=== PATIENT | male | born 1945 | race Caucasian/White ===

== ENCOUNTER 2021-10-27 11:09 | Day surgery (SDC) | payer OTHER ==
[2021-10-26 13:57] LABS: SARS-CoV-2 Antigen Rapid Res Negative (Negative)
--- NOTE | 2021-10-27 07:21 | EKG ---
Test Date: 2021-10-26 Test Time: 13:25:44 [employer]: ERIC MEASUREMENT RESULTS: Intervals: Rate: 78 NJ: 202 QRSD: 102 QT: 370 QTc: 421 Mission: P: 58 NJ: 202 QRS: 16 T: 27 INTERPRETIVE STATEMENTS: Normal sinus rhythm Normal ECG No previous ECG available for comparison Electronically Signed On 10-27-21 07:18:40 CDT by Jose Rogel
[2021-10-27] MEDS ORDERED: CEFAZOLIN 2 GM IN 0.9% NACL 2 GM/100 ML BAG ONE (11:32)
[2021-10-27] MEDS ORDERED: NA CHLORIDE 0.9% 1,000 ML ONE (11:32)
[2021-10-27] MEDS ORDERED: LIDOCAINE 2% MPF 5 ML VIAL ONE (13:40)
[2021-10-27] MEDS ORDERED: propofoL 200 MG/20 ML VIAL IV ONE ×2 (13:40)
[2021-10-27] MEDS ORDERED: BUPIVACAINE 0.25% PF 30 ML VIAL ONE (14:09)
[2021-10-27] MEDS ORDERED: BUPIVACAINE 0.25% PF 10 ML VIAL IJ ONE ×2 (14:22)
[2021-10-27] MEDS ORDERED: SODIUM HYPOCHLORITE 0.25% 473 ML ONE (14:36)
--- NOTE | 2021-10-27 14:37 | P.OP ---
Preoperative diagnosis: Posterior Neck infected sebaceous cyst Postoperative diagnosis: Posterior Neck infected sebaceous cyst Primary procedure: Wide excision of Posterior Neck infected sebaceous cyst Anesthesia: GETA + Local Estimated blood loss: < 5cc Specimen: Posterior Neck infected sebaceous cyst Findings: ~6cm x 3 cm Posterior Neck infected sebaceous cyst Complications: None Transferred to: Recovery Room Condition: Good
[2021-10-27 16:17] VITALS: BP 142/51; TEMP 97.5; O2SAT 99
--- NOTE | 2021-10-27 21:40 | OP ---
Date of Procedure: 10/27/2021 Surgeon: Ammon Quinones MD, Preoperative Diagnosis: Posterior neck infected sebaceous cyst. Postoperative Diagnosis: Posterior neck infected sebaceous cyst. Procedure Performed: Wide local excision of posterior neck infected sebaceous cyst. Anesthesia: MAC plus local. Estimated Blood Loss: 5 cc. Specimens: Posterior neck infected sebaceous cyst. Findings: Approximately 6 cm x 3 cm posterior neck infected sebaceous cyst. Complications: None. Disposition: Patient was transferred to recovery room in good condition. Procedure In Detail: After informed was obtained, patient was brought to the operating room, prepped and draped in sterile fashion. After adequate anesthesia was achieved, an area of the posterior nec k and the area between the shoulder blades was anesthetized with 0.25% Marcaine, sharply incised. Th is abscess material had been draining from this site from the central portion. It appeared consisten t with infected sebaceous cyst. I circumferentially dissected down approximately 6 mm x 3 cm ellipse of skin including the infected areas down to circumferentially remove a sebaceous cyst with sebaceou s material. I circumferentially removed all the infected tissues and removed the entire sac along wi th the space material and sent it off for pathologic examination. Hemostasis was achieved with Bovie electrocautery. The area was copiously irrigated and then cleansed and suctioned out to completely dry. No additional hemostatic maneuvers required at the end of the procedure. Wound was then packed with sterile Kerlix soaked in 0.25% Dakin solution and a sterile dressing was placed over top. Quiana ent tolerated the procedure without evidence of complication and transferred to PACU in good conditio n. All counts were correct at the end of the case. SAMANTHA/ESTELLEL Voice ID: [id number] Report ID: [id number]
== END 2021-10-27 16:05 | disposition home or self-care (01) ==
LOC: OR 11:09
PROVIDERS: ATTEND Surgery
PROC: 0JB50ZZ Excision of Left Neck Subcutaneous Tissue and Fascia, Open Approach (ICD-10-PCS; principal; 2021-10-27 13:45)
DX: L72.0 Epidermal cyst (principal); Z20.822 Contact with and (suspected) exposure to COVID-19; I10 Essential (primary) hypertension; E11.9 Type 2 diabetes mellitus without complications
CPT/HCPCS: 93005; 87070; 36415; 87205; 82947 ×2; 88304; 87075; 87077; 87186; 87811; 11426; J2704 ×2; J0690; J7030; J2001

== ENCOUNTER 2021-10-27 20:41 | Emergency (ER) | payer OTHER ==
--- OUTSIDE RECORDS SUMMARY | 2021-10-27 21:20 | XMS REPORT | Continuity of Care Document ---
:1945 Author Organization [facility] t Address [address] [place] [address] Care Team Providers Name Role Phone Rashi Howell MD Primary Care Physician ELIS MCKEON Attending Clinician Unavailable Rashi Howell MD Attending Clinician Shadia Chavarria MDHJez Attending Clinician Doctor Unassigned, [place] Attending Clinician Unavailable MOHAN KAUFFMAN Attending Clinician Unavailable SHADIA CHAVARRIAHJez Attending Clinician Unavailable SALOME ZUNIGA Attending Clinician Unavailable Salome Miller Attending Clinician Unknown, Attending Attending Clinician Unavailable RASHI HOWELL Attending Clinician Unavailable Wilber Gross Attending Clinician Rome Ellsworth Attending Clinician Sergio Shields II Attending Clinician Maylin Ramirez Attending Clinician Maylin Ramirez Attending Clinician ELIS MCKEON Admitting Clinician Unavailable Payers Payer Name Policy Type Policy Number Effective Date Expiration Date S ource [employer] CHOICE [id number] 2021 00:00:00 Problems Condition Condition Condition Status Onset Resolution Last Treating Co mments Source Name Details Category Date Date Treatment Clinician Date Other Other Disease Active Univers elevated elevated 11-10 ity of white white 00:00: [place] blood cell blood cell 00 Me dical (WBC) (WBC) Branch count count Stress due Stress due Disease Active U nivers to illness to illness 11-10 it y of of family of [place] 00 [place] Medicare Medicare Disease Active Unive rs annual annual 9-11 ity of wellness wellness 00:00: [place] visit, visit, 00 Medical subsequent subsequent Br anch Rheumatic Rheumatic Disease Active Uni vers heart heart 11-01 ity of disease disease 00:00: [place] 00 Medical Branch Rheumatic Rheumatic Disease Active Uni vers mitral mitral 11-01 ity of valve valve 00:00: [place] leaflet leaflet 00 Medical changes changes Branch BOATENG BOATENG Disease Active Univers (nonalcoho (nonalcoho 11-01 it y of lic lic 00:00: [place] steatohepa steatohepa 00 Me dical titis) titis) Branch Need for Need for Disease Active Unive rs hepatitis hepatitis 11-01 ity of C C 00:00: [place] screening screening 00 Medi joann test test Branch Essential Essential Disease Active 2009-02 Uni vers hypertensi hypertensi 0-08 it y of on, benign [place], benign [place] Controlled Controlled Disease Active Overview : Univers type 2 type 2 07-23 Formattin ity of diabetes diabetes 00:00: g of this [place] as mellitus mellitus 00 note Medica l without without might be Branch complicati complicati different on, on, from the without without original. long-term long-term ICD10 current current Diagnosis use of use of Term insulin insulin [employer] FATTY FATTY Disease Active Univers LIVER LIVER 07-23 ity of 00:00: [place] 00 Medical Branch Dyslipidem Dyslipidem Disease Active Overview : Univers ia ia 07-23 Formattin ity of 00:00: g of this [place] 00 note Medical might be Branch different from the original. ICD10 Diagnosis Term [employer] Presence Presence Disease Active Overview: Un [place] of stent of stent 07-23 Formattin ity of in in 00:00: g of this [place] coronary coronary 00 note Medica l artery in artery in might be Br anch patient patient different with with from the coronary coronary original. artery artery ICD10 disease disease Diagnosis Term [employer] Nicotine Nicotine Disease Active Unive rs dependence dependence 07-23 it y of with with 00:00: [place] current current 00 Medical use use Branch Coronary Coronary Problem Active 2020-11-05 Memoria arterioscl arterioscl 02:02:40 l erosis erosis [place] (disorder) (disorder) Active Problem [facility]05/2020 [facility] Heart Heart Problem Active 2020-11-05 Memor ia disease disease 02:02:40 l (disorder) (disorder) He rmann Active Problem 11/05/2020 [facility] Heavy Heavy Problem Active 2020-11-05 Memor ia cigarette cigarette 02:02:40 l smoker smoker [place] (finding) (finding) Active Problem 11/05/2020 Medical [facility] Hypertensi Hypertens Problem Active 2020-11-05 Memoria ve nahomi 02:02:40 l disorder, disorder, Herm dereje systemic systemic arterial arterial (disorder) (disorder) [facility] Hypertens Problem Active 2020-11-05 Memoria ve heart nahomi heart 02:02:40 l disease disease [place] (disorder) (disorder) Active Problem 11/05/2020 Medical [facility] Mixed Mixed Problem Active 2020-11-05 Memor ia hyperlipid hyperlipid 02:02:40 l emia emia [place] (disorder) (disorder) Active Problem 11/05/2020 Medical [facility] Simple Simple Problem Active 2020-11-05 Mem oria obesity obesity 02:02:40 l (disorder) (disorder) He rmdereje Active Problem 11/05/2020 [facility] Diabetes Diabetes Problem Active 2020-11-05 Memoria mellitus mellitus 02:02:40 l type 2 type 2 [place] (disorder) (disorder) Active Problem 11/05/2020 [facility] Tinea Tinea Problem Active 2020-11-05 Memor ia cruris cruris 02:02:40 l (disorder) (disorder) He rmann Active Problem 11/05/2020 Medical Group, OPID Moshe Metabolic Metabolic Problem Active 2020-11-05 Memoria disease disease 02:02:40 l (disorder) (disorder) He rmann Active Problem 11/05/2020 Medical Group Diabetes Diabetes Problem Active 2019-09-11 Memoria mellitus mellitus 00:46:57 l (disorder) (disorder) He rmann Active Problem 09/11/2019 [facility] Group Allergies, Adverse Reactions, Alerts Allergy Allergy Status Severity Reaction(s) Onset Inactive Treating Comm ents Source Name Type Date Date Clinician NO KNOWN Drug Active Univers ALLERGIE Class ity of S [facility] Social History Social Habit Start Date Stop Date Quantity Comments Source History [facility] University o f Alcohol Std Drinks [facility] History [facility] o f Alcohol Binge [facility] Exposure to Not sure [facility] SARS-CoV-2 (event) [facility] History of tobacco Cigarette Smoker University of use [facility] Alcohol intake 2021-01-24 2021-01-24 Current University of 00:00:00 00:00:00 non-drinker of [facility] alcohol (finding) Branch Cigarettes smoked 2020-11-21 2020-11-21 [facility] ity of current (pack per 00:00:00 00:00:00 [facility] ) - Reported Branch Cigarette 2020-11-21 2020-11-21 University of pack-years 00:00:00 00:00:00 [facility] Tobacco use and 2020-11-21 2020-11-21 Smokeless tobacco Un iversity of exposure 00:00:00 00:00:00 non-user [facility] Social History 2019-09-16 2019-09-16 [facility] Jack mario 18:58:21 18:58:21 Alcohol Comment 2005-07-23 2005-07-23 RECOVERING Universit y of 00:00:00 00:00:00 ALCOHOLIC [facility] Sex [birth year] Universit y of 00:00:00 00:00:00 [facility] Smoking Status Start Date Stop Date Source Smokes tobacco daily 2020-11-21 00:00:00 Univers ity of [place] Medical [facility] Medications Ordered Filled Start Stop Current Ordering Indication Dosage Frequency Signature Comments Components Source Medication Medication Date Date Medication? Clinician (SIG) Name Name GIACOMO Yes [id number] Take 1 Univers N 20 mg 8-29 tablet by ity of tablet 00:00: mouth once [place] daily Medical Branch LISINOPRIL Yes [id number] Take 1 Un [facility] 20 mg 3-25 tablet by ity of tablet 00:00: mouth once [place] daily Medical Branch LISINOPRIL Yes [id number] Take 1 Un [place] 20 mg 3-25 tablet by ity of tablet 00:00: mouth once [place] daily Medical Branch LISINOPRIL Yes [id number] Take 1 Un [place] 20 mg 3-25 tablet by ity of tablet 00:00: mouth once [place] daily Medical Branch LISINOPRIL Yes [id number] Take 1 Un [place] 20 mg 3-25 tablet by ity of tablet 00:00: mouth once [place] daily Medical Branch LISINOPRIL Yes [id number] Take 1 Un [place] 20 mg 3-25 tablet by ity of tablet 00:00: mouth once [place] daily Medical Branch doxycycline 2020-02 Yes [id number] 100mg Take 1 Univers hyclate 100 1-24 tablet by ity of mg tablet 00:00: mouth 2 [place] (two) Medical times Ozone daily. albuterol 2020-02 Yes [id number] 2.5mg Inhale 0.5 Univers 2.5 mg/0.5 1-24 mL every 6 ity of mL 00:00: (six) [place] nebulizer 00 hours as Medica l solution needed for Branc h Wheezing or Shortness of Breath. benzonatate 2020-02 Yes [id number] 100mg Take 1 Univers (TESSALON 1-24 capsule by ity of PERLES) 100 00:00: mouth [place] mg capsule 00 every 8 Medica l (eight) Branch hours as needed for Cough. doxycycline 2020-02 Yes [id number] 100mg Take 1 Univers hyclate 100 1-24 tablet by ity of mg tablet 00:00: mouth 2 [place] 00 (two) Medical times Branch daily. albuterol 2020-02 Yes [id number] 2.5mg Inhale 0.5 Univers 2.5 mg/0.5 1-24 mL every 6 ity of mL 00:00: (six) [place] nebulizer 00 hours as Medica l solution needed for Branc h Wheezing or Shortness of Breath. benzonatate 2020-02 Yes [id number] 100mg Take 1 Univers (TESSALON 1-24 capsule by ity of PERLES) 100 00:00: mouth [place] mg capsule 00 every 8 Medica l (eight) Branch hours as needed for Cough. doxycycline 2020-02 Yes [id number] 100mg Take 1 Univers hyclate 100 1-24 tablet by ity of mg tablet 00:00: mouth 2 [place] 00 (two) Medical times Branch daily. albuterol 2020-02 Yes [id number] 2.5mg Inhale 0.5 Univers 2.5 mg/0.5 1-24 mL every 6 ity of mL 00:00: (six) [place] nebulizer 00 hours as Medica l solution needed for Branc h Wheezing or Shortness of Breath. benzonatate 2020-02 Yes [id number] 100mg Take 1 Univers (TESSALON 1-24 capsule by ity of PERLOmgili) 100 00:00: mouth [place] mg capsule 00 every 8 Medica l (eight) Branch hours as needed for Cough. doxycycline 2020-02 Yes [id number] 100mg Take 1 Univers hyclate 100 1-24 tablet by ity of mg tablet 00:00: mouth 2 (two) Medical times Branch daily. albuterol 2020-02 Yes [id number] 2.5mg Inhale 0.5 Univers 2.5 mg/0.5 1-24 mL every 6 ity of mL 00:00: (six) [place] nebulizer 00 hours as Medica l solution needed for Branc h Wheezing or Shortness of Breath. benzonatate 2020-02 Yes [id number] 100mg Take 1 Univers (TESSALON 1-24 capsule by ity of PERLES) 100 00:00: mouth [place] mg capsule 00 every 8 Medica l (eight) Branch hours as needed for Cough. doxycycline 2020-02 Yes [id number] 100mg Take 1 Univers hyclate 100 1-24 tablet by ity of mg tablet 00:00: mouth 2 [place] 00 (two) Medical times Branch daily. albuterol 2020-02 Yes [id number] 2.5mg Inhale 0.5 Univers 2.5 mg/0.5 1-24 mL every 6 ity of mL 00:00: (six) [place] nebulizer 00 hours as Medica l solution needed for Branc h Wheezing or Shortness of Breath. benzonatate 2020-02 Yes [id number] 100mg Take 1 Univers (TESSALON 1-24 capsule by ity of PERLOmgili) 100 00:00: mouth [place] mg capsule 00 every 8 Medica l (eight) Branch hours as needed for Cough. doxycycline 2020-02 Yes [id number] 100mg Take 1 Univers hyclate 100 1-24 tablet by ity of mg tablet 00:00: mouth 2 [place] 00 (two) Medical times Branch daily. albuterol 2020-02 Yes [id number] 2.5mg Inhale 0.5 Univers 2.5 mg/0.5 1-24 mL every 6 ity of mL 00:00: (six) [place] nebulizer 00 hours as Medica l solution needed for Branc h Wheezing or Shortness of Breath. benzonatate 2020-02 Yes [id number] 100mg Take 1 Univers (TESSALON 1-24 capsule by ity of PERLOmgili) 100 00:00: mouth [place] mg capsule 00 every 8 Medica l (eight) Branch hours as needed for Cough. doxycycline 2020-02 Yes [id number] 100mg Take 1 Univers hyclate 100 1-24 tablet by ity of mg tablet 00:00: mouth 2 [place] 00 (two) Medical times Branch daily. albuterol 2020-02 Yes [id number] 2.5mg Inhale 0.5 Univers 2.5 mg/0.5 1-24 mL every 6 ity of mL 00:00: (six) [place] nebulizer 00 hours as Medica l solution needed for Branc h Wheezing or Shortness of Breath. benzonatate 2020-02 Yes [id number] 100mg Take 1 Univers (TESSALON 1-24 capsule by ity of PERLES) 100 00:00: mouth [place] mg capsule 00 every 8 Medica l (eight) Branch hours as needed for Cough. Lancets 2020-02 Yes [id number] E11.9: Use Univers (ACCU-CHEK 0-01 1 to check ity of FASTCLIX 00:00: glucose [place] LANCET 00 once daily Medical DRUM) Misc Branch Lancets 2020-02 Yes [id number] E11.9: Use Univers (ACCU-CHEK 0-01 1 to check ity of FASTCLIX 00:00: glucose [place] LANCET 00 once daily Medical DRUM) [facility] Lancets 2020-02 Yes [id number] E11.9: Use Univers (ACCU-CHEK 0-01 1 to check ity of FASTCLIX 00:00: glucose [place] LANCET 00 once daily Medical DRUM) [facility] Lancets 2020-02 Yes [id number] E11.9: Use Univers (ACCU-CHEK 0-01 1 to check ity of FASTCLIX 00:00: glucose [place] LANCET 00 once daily Medical DRUM) [facility] Lancets 2020-02 Yes [id number] E11.9: Use Univers (ACCU-CHEK 0-01 1 to check ity of FASTCLIX 00:00: glucose [place] LANCET 00 once daily Medical DRUM) [facility] Lancets 2020-02 Yes [id number] E11.9: Use Univers (ACCU-CHEK 0-01 1 to check ity of FASTCLIX 00:00: glucose [place] LANCET 00 once daily Medical DRUM) [facility] Lancets 2020-02 Yes [id number] E11.9: Use Univers (ACCU-CHEK 0-01 1 to check ity of FASTCLIX 00:00: glucose [place] LANCET 00 once daily Medical DRUM) [facility] nicotine Yes [id number] 1{patch Apply 1 Univers mg/24 hr 9-16 } Patch to ity of patch 00:00: area(s) [place] 00 daily. Medical Apply 21mg Branch patch daily x 6 weeks; then apply 14mf patch daily x 2 weeks; then apply 7mg patch daily x 2 weeks. Stop smoking on initiation of therapy nicotine Yes [id number] 1{patch Apply 1 Univers mg/24 hr 9-16 } Patch to ity of patch 00:00: area(s) [place] 00 every 24 Medical (twenty-fo Branch ur) hours. Apply 21mg patch daily x 6 weeks; then apply 14mf patch daily x 2 weeks; then apply 7mg patch daily x 2 weeks. Stop smoking on initiation of therapy nicotine 7 Yes [id number] 1{patch Apply 1 Univers mg/24 hr 9-16 } Patch to ity of patch 00:00: area(s) [place] 00 every 24 Medical (twenty- Branch ur) hours. Apply 21mg patch daily x 6 weeks; then apply 14mf patch daily x 2 weeks; then apply 7mg patch daily x 2 weeks. Stop smoking on initiation of therapy glimepiride Yes [id number] 4mg Take 1 Univers 4 mg tablet 9-16 tablet by ity of 00:00: mouth [place] 00 daily with Medical breakfast. Branch nicotine Yes [id number] 1{patch Apply 1 Univers mg/24 hr 9-16 } Patch to ity of patch 00:00: area(s) [place] 00 daily. Medical Apply 21mg Branch patch daily x 6 weeks; then apply 14mf patch daily x 2 weeks; then apply 7mg patch daily x 2 weeks. Stop smoking on initiation of therapy nicotine Yes [id number] 1{patch Apply 1 Univers mg/24 hr 9-16 } Patch to ity of patch 00:00: area(s) [place] 00 every 24 Medical (twenty- Branch ur) hours. Apply 21mg patch daily x 6 weeks; then apply 14mf patch daily x 2 weeks; then apply 7mg patch daily x 2 weeks. Stop smoking on initiation of therapy nicotine 7 Yes [id number] 1{patch Apply 1 Univers mg/24 hr 9-16 } Patch to ity of patch 00:00: area(s) [place] 00 every 24 Medical (twenty- Branch ur) hours. Apply 21mg patch daily x 6 weeks; then apply 14mf patch daily x 2 weeks; then apply 7mg patch daily x 2 weeks. Stop smoking on initiation of therapy glimepiride Yes [id number] 4mg Take 1 Univers 4 mg tablet 9-16 tablet by ity of 00:00: mouth [place] 00 daily with Medical breakfast. Branch nicotine Yes [id number] 1{patch Apply 1 Univers mg/24 hr 9-16 } Patch to ity of patch 00:00: area(s) [place] 00 daily. Medical Apply 21mg Branch patch daily x 6 weeks; then apply 14mf patch daily x 2 weeks; then apply 7mg patch daily x 2 weeks. Stop smoking on initiation of therapy nicotine Yes [id number] 1{patch Apply 1 Univers mg/24 hr 9-16 } Patch to ity of patch 00:00: area(s) [place] 00 every 24 Medical (twenty- Branch ur) hours. Apply 21mg patch daily x 6 weeks; then apply 14mf patch daily x 2 weeks; then apply 7mg patch daily x 2 weeks. Stop smoking on initiation of therapy nicotine Yes [id number] 1{patch Apply 1 Univers mg/24 hr 9-16 } Patch to ity of patch 00:00: area(s) [place] 00 every 24 Medical (twenty- Branch ur) hours. Apply 21mg patch daily x 6 weeks; then apply 14mf patch daily x 2 weeks; then apply 7mg patch daily x 2 weeks. Stop smoking on initiation of therapy glimepiride Yes [id number] 4mg Take 1 Univers 4 mg tablet 9-16 tablet by ity of 00:00: [facility] [place] 00 daily with Medical breakfast. Branch nicotine Yes [id number] 1{patch Apply 1 Univers mg/24 hr 9-16 } Patch to ity of patch 00:00: area(s) [place] 00 daily. Medical Apply 21mg Branch patch daily x 6 weeks; then apply 14mf patch daily x 2 weeks; then apply 7mg patch daily x 2 weeks. Stop smoking on initiation of therapy nicotine Yes [id number] 1{patch Apply 1 Univers mg/24 hr 9-16 } Patch to ity of patch 00:00: area(s) [place] 00 every 24 Medical ([facility] Branch ur) hours. Apply 21mg patch daily x 6 weeks; then apply 14mf patch daily x 2 weeks; then apply 7mg patch daily x 2 weeks. Stop smoking on initiation of therapy nicotine Yes [id number] 1{patch Apply 1 Univers mg/24 hr 9-16 } Patch to ity of patch 00:00: area(s) [place] 00 every 24 Medical (twenty- Branch ur) hours. Apply 21mg patch daily x 6 weeks; then apply 14mf patch daily x 2 weeks; then apply 7mg patch daily x 2 weeks. Stop smoking on initiation of therapy glimepiride Yes [id number] 4mg Take 1 Univers 4 mg tablet 9-16 tablet by ity of 00:00: mouth [place] 00 daily with Medical breakfast. Branch nicotine Yes [id number] 1{patch Apply 1 Univers mg/24 hr 9-16 } Patch to ity of patch 00:00: area(s) [place] 00 daily. Medical Apply 21mg Branch patch daily x 6 weeks; then apply 14mf patch daily x 2 weeks; then apply 7mg patch daily x 2 weeks. Stop smoking on initiation of therapy nicotine 14 Yes [id number] 1{patch Apply 1 Univers mg/24 hr 9-16 } Patch to ity of patch 00:00: area(s) [place] 00 every 24 Medical (twenty-fo Branch ur) hours. Apply 21mg patch daily x 6 weeks; then apply 14mf patch daily x 2 weeks; then apply 7mg patch daily x 2 weeks. Stop smoking on initiation of therapy nicotine 7 Yes [id number] 1{patch Apply 1 Univers mg/24 hr 9-16 } Patch to ity of patch 00:00: area(s) [place] 00 every 24 Medical (twenty-fo Branch ur) hours. Apply 21mg patch daily x 6 weeks; then apply 14mf patch daily x 2 weeks; then apply 7mg patch daily x 2 weeks. Stop smoking on initiation of therapy glimepiride Yes [id number] 4mg Take 1 Univers 4 mg tablet 9-16 tablet by ity of 00:00: mouth [place] 00 daily with Medical breakfast. Branch nicotine Yes [id number] 1{patch Apply 1 Univers mg/24 hr 9-16 } Patch to ity of patch 00:00: area(s) [place] 00 daily. Medical Apply 21mg Branch patch daily x 6 weeks; then apply 14mf patch daily x 2 weeks; then apply 7mg patch daily x 2 weeks. Stop smoking on initiation of therapy nicotine 14 Yes [id number] 1{patch Apply 1 Univers mg/24 hr 9-16 } Patch to ity of patch 00:00: area(s) [place] 00 every 24 Medical (twenty-fo Branch ur) hours. Apply 21mg patch daily x 6 weeks; then apply 14mf patch daily x 2 weeks; then apply 7mg patch daily x 2 weeks. Stop smoking on initiation of therapy nicotine 7 2021-0 Yes [id number] 1{patch Apply 1 Univers mg/24 hr 9-16 } Patch to ity of patch 00:00: area(s) [place] 00 every 24 Medical (twenty-fo Branch ur) hours. Apply 21mg patch daily x 6 weeks; then apply 14mf patch daily x 2 weeks; then apply 7mg patch daily x 2 weeks. Stop smoking on initiation of therapy glimepiride Yes [id number] 4mg Take 1 Univers 4 mg tablet 9-16 tablet by ity of 00:00: mouth [place] 00 daily with Medical breakfast. Branch nicotine Yes [id number] 1{patch Apply 1 Univers mg/24 hr 9-16 } Patch to ity of patch 00:00: area(s) [place] 00 daily. Medical Apply 21mg Branch patch daily x 6 weeks; then apply 14mf patch daily x 2 weeks; then apply 7mg patch daily x 2 weeks. Stop smoking on initiation of therapy nicotine Yes [id number] 1{patch Apply 1 Univers mg/24 hr 9-16 } Patch to ity of patch 00:00: area(s) [place] 00 every 24 Medical (twenty-fo Branch ur) hours. Apply 21mg patch daily x 6 weeks; then apply 14mf patch daily x 2 weeks; then apply 7mg patch daily x 2 weeks. Stop smoking on initiation of therapy nicotine Yes [id number] 1{patch Apply 1 Univers mg/24 hr 9-16 } Patch to ity of patch 00:00: area(s) [place] 00 every 24 Medical (twenty-fo Branch ur) hours. Apply 21mg patch daily x 6 weeks; then apply 14mf patch daily x 2 weeks; then apply 7mg patch daily x 2 weeks. Stop smoking on initiation of therapy glimepiride Yes [id number] 4mg Take 1 Univers 4 mg tablet 9-16 tablet by ity of 00:00: mouth [place] 00 daily with Medical breakfast. Branch dulaglutide Yes 1.5mg inject 1.5 Univers (TRULICITY) 9-07 mg under ity of 1.5 mg/0.5 10:10: the skin Day[place] as mL PnIj 08 every 7 Medical (seven) Branch days. dulaglutide 2021-0 Yes 1.5mg inject 1.5 Univers (TRULICITY) 9-07 mg under ity of 1.5 mg/0.5 10:10: the skin [place] as mL PnIj 08 every 7 Medical (seven) Branch days. dulaglutide 2021-0 Yes 1.5mg inject 1.5 Univers (TRULICITY) 9-07 mg under ity of 1.5 mg/0.5 10:10: the skin [place] as mL PnIj 08 every 7 Medical (seven) Branch days. dulaglutide 2021-0 Yes 1.5mg inject 1.5 Univers (TRULICITY) 9-07 mg under ity of 1.5 mg/0.5 10:10: the skin [place] as mL PnIj 08 every 7 Medical (seven) Branch days. dulaglutide 2021-0 Yes 1.5mg inject 1.5 Univers (TRULICITY) 9-07 mg under ity of 1.5 mg/0.5 10:10: the skin [place] as mL PnIj 08 every 7 Medical (seven) Branch days. dulaglutide 2021-0 Yes 1.5mg inject 1.5 Univers (TRULICITY) 9-07 mg under ity of 1.5 mg/0.5 10:10: the skin [place] as mL PnIj 08 every 7 Medical (seven) Branch days. dulaglutide 2021-0 Yes 1.5mg inject 1.5 Univers (TRULICITY) 9-07 mg under ity of 1.5 mg/0.5 10:10: the skin [place] as mL PnIj 08 every 7 Medical (seven) Branch days. aspirin 81 2020-0 Yes 1{tbl} Take 1 Uni vers mg EC 9-07 tablet by ity of tablet 10:08: mouth [place] 57 daily. Medical Branch acetaminoph 202-0 Yes 1{tbl} Take 1 Un [place] en 325 mg 9-07 tablet by ity o f tablet 10:08: mouth [place] 57 daily. Medical Branch aspirin 81 2021-0 Yes 1{tbl} Take 1 Uni vers mg EC 9-07 tablet by ity of tablet 10:08: mouth [place] 57 daily. Medical Branch acetaminoph 202-0 Yes 1{tbl} Take 1 Un [place] en 325 mg 9-07 tablet by ity o f tablet 10:08: mouth [place] 57 daily. Medical Branch aspirin 81 Yes 1{tbl} Take 1 Uni vers mg EC 9-07 tablet by ity of tablet 10:08: mouth [place] 57 daily. Medical Branch acetaminoph Yes 1{tbl} Take 1 Un [place] en 325 mg 9-07 tablet by ity o f tablet 10:08: mouth [place] 57 daily. Medical Branch aspirin 81 Yes 1{tbl} Take 1 Uni vers mg EC 9-07 tablet by ity of tablet 10:08: mouth [place] 57 daily. Medical Branch acetaminoph Yes 1{tbl} Take 1 Un [place] en 325 mg 9-07 tablet by ity o f tablet 10:08: mouth [place] 57 daily. Medical Branch aspirin 81 Yes 1{tbl} Take 1 Uni vers mg EC 9-07 tablet by ity of tablet 10:08: mouth [place] 57 daily. Medical Branch acetaminoph Yes 1{tbl} Take 1 Un [place] en 325 mg 9-07 tablet by ity o f tablet 10:08: mouth [place] 57 daily. Medical Branch aspirin 81 Yes 1{tbl} Take 1 Uni vers mg EC 9-07 tablet by ity of tablet 10:08: mouth [place] 57 daily. Medical Branch acetaminoph Yes 1{tbl} Take 1 Un [place] en 325 mg 9-07 tablet by ity o f tablet 10:08: mouth [place] 57 daily. Medical Branch aspirin 81 Yes 1{tbl} Take 1 Uni vers mg EC 9-07 tablet by ity of tablet 10:08: mouth [place] 57 daily. Medical Branch acetaminoph Yes 1{tbl} Take 1 [facility] [place] en 325 mg 9-07 tablet by ity o f tablet 10:08: mouth [place] 57 daily. Medical Branch metoprolol Yes [id number] 25mg Take 1 Univers tartrate 25 9-07 tablet by ity of mg tablet 00:00: mouth [place] 00 daily. Medical Branch lisinopriL Yes [id number] 20mg Take 1 [facility] [place] 20 mg 9-07 tablet by ity of tablet 00:00: mouth [place] 00 daily. Medical Branch metFORMIN Yes [id number] TAKE ONE Univers 1,000 mg 9-07 TABLET BY ity of tablet 00:00: MOUTH [place] 00 TWICE Medical DAILY WITH Branch MEALS rosuvastati Yes [id number] 20mg Take 1 Univers n 20 mg 9-07 tablet by ity of tablet 00:00: mouth [place] 00 daily. Medical Branch nitroglycer 0 Yes [id number] as U nivers in 0.4 mg 9-07 directed ity of sublingual 00:00: [place] tablet 00 Medical Branch metoprolol 0 Yes [id number] 25mg Take 1 Univers tartrate 25 9-07 tablet by ity of mg tablet 00:00: mouth [place] 00 daily. Medical Branch lisinopriL Yes [id number] 20mg Take 1 Un sien[place] 20 mg 9-07 tablet by ity of tablet 00:00: mouth [place] 00 daily. Medical Branch metFORMIN 0 Yes [id number] TAKE ONE Univers 1,000 mg 9-07 TABLET BY ity of tablet 00:00: MOUTH [place] 00 TWICE Medical DAILY WITH Branch MEALS rosuvastati Yes [id number] 20mg Take 1 Univers n 20 mg 9-07 tablet by ity of tablet 00:00: mouth [place] 00 daily. Medical Branch nitroglycer Yes [id number] as U nivers in 0.4 mg 9-07 directed ity of sublingual 00:00: [place] tablet 00 Medical Branch metoprolol 0 Yes [id number] 25mg Take 1 Univers tartrate 25 9-07 tablet by ity of mg tablet 00:00: mouth [place] 00 daily. Medical Branch metFORMIN 2020-0 Yes [id number] TAKE ONE Univers 1,000 mg 9-07 TABLET BY ity of tablet 00:00: MOUTH [place] 00 TWICE Medical DAILY WITH Branch MEALS rosuvastati Yes [id number] 20mg Take 1 Univers n 20 mg 9-07 tablet by ity of tablet 00:00: mouth [place] 00 daily. Medical Branch nitroglycer 0 Yes [id number] as U nivers in 0.4 mg 9-07 directed ity of sublingual 00:00: [place] tablet 00 Medical Branch metoprolol 2020-0 Yes [id number] 25mg Take 1 Univers tartrate 25 9-07 tablet by ity of mg tablet 00:00: mouth [place] 00 daily. Medical Branch metFORMIN 2021-0 Yes [id number] TAKE ONE Univers 1,000 mg 9-07 TABLET BY ity of tablet 00:00: MOUTH [place] 00 TWICE Medical DAILY WITH Branch MEALS rosuvastati 0 Yes [id number] 20mg Take 1 Univers n 20 mg 9-07 tablet by ity of tablet 00:00: mouth [place] 00 daily. Medical Branch nitroglycer 2020-0 Yes [id number] as U nivers in 0.4 mg 9-07 directed ity of sublingual 00:00: [place] tablet 00 Medical Branch metoprolol 2020-0 Yes [id number] 25mg Take 1 Univers tartrate 25 9-07 tablet by ity of mg tablet 00:00: mouth [place] 00 daily. Medical Branch metFORMIN 2020-0 Yes [id number] TAKE ONE Univers 1,000 mg 9-07 TABLET BY ity of tablet 00:00: MOUTH [place] 00 TWICE Medical DAILY WITH Branch MEALS rosuvastati 0 Yes [id number] 20mg Take 1 Univers n 20 mg 9-07 tablet by ity of tablet 00:00: mouth [place] 00 daily. Medical Branch nitroglycer 0 Yes [id number] as U nivers in 0.4 mg 9-07 directed ity of sublingual 00:00: [place] tablet 00 Medical Branch metoprolol 2020-0 Yes [id number] 25mg Take 1 Univers tartrate 25 9-07 tablet by ity of mg tablet 00:00: mouth [place] 00 daily. Medical Branch metFORMIN 2020-0 Yes [id number] TAKE ONE Univers 1,000 mg 9-07 TABLET BY ity of tablet 00:00: MOUTH [place] 00 TWICE Medical DAILY WITH Branch MEALS rosuvastati 0 Yes [id number] 20mg Take 1 Univers n 20 mg 9-07 tablet by ity of tablet 00:00: mouth [place] 00 daily. Medical Branch nitroglycer 0 Yes [id number] as U nivers in 0.4 mg 9-07 directed ity of sublingual 00:00: [place] tablet 00 Medical Branch metoprolol 2020-0 Yes [id number] 25mg Take 1 Univers tartrate 25 9-07 tablet by ity of mg tablet 00:00: mouth [place] 00 daily. Medical Branch metFORMIN 2020-0 Yes [id number] TAKE ONE Univers 1,000 mg 9-07 TABLET BY ity of tablet 00:00: MOUTH [place] 00 TWICE Medical DAILY WITH Branch MEALS nitroglycer Yes [id number] as U nivers in 0.4 mg 11-01 directed ity of sublingual 00:00: [place] tablet 00 Medical Branch rosuvastati 2021- No [id number] 20mg Take 1 Univers n 20 mg 11-01 tablet by ity of tablet 00:00: 00:00 mouth [place] 00 :00 daily. Medical Branch lisinopriL 2021- No [id number] 20mg Take 1 U nivers 20 mg 11-01 tablet by ity of tablet 00:00: 00:00 mouth [place] 00 :00 daily. Medical Branch Accu-Chek Yes , # 1 ea, Mem oria Guide Blood 8-10 Not l Glucose 15:56: insulin [place] Meter 00 dependent, Does not use insulin pump, Last DM eval date 09/30/20, 0 Refill(s), Pharmacy: [facility]iver... ACCU-CHEK Yes Univers GUIDE 8-10 ity of GLUCOSE 00:00: [place] METER Misc 00 Medical Branch ACCU-CHEK 0 Yes Univers GUIDE 8-10 ity of GLUCOSE 00:00: [place] METER Misc 00 Medical Branch ACCU-CHEK 0 Yes Univers GUIDE 8-10 ity of GLUCOSE 00:00: [place] METER Misc 00 Medical Branch ACCU-CHEK 2020-0 Yes Univers GUIDE 8-10 ity of GLUCOSE 00:00: [place] METER Misc 00 Medical Branch ACCU-CHEK 2020-0 Yes Univers GUIDE 8-10 ity of GLUCOSE 00:00: [place] METER Misc 00 Medical Branch ACCU-CHEK 2020-0 Yes Univers GUIDE 8-10 ity of GLUCOSE 00:00: [place] METER Misc 00 Medical Branch ACCU-CHEK 2020-0 Yes Univers GUIDE 8-10 ity of GLUCOSE 00:00: [place] METER Misc 00 Medical Branch Dexcom G6 2020-0 Yes , # 1 ea, 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 Dexcom G6 2021-0 Yes 1 Umm thayeroria Sensor Kit - MISC, l 21:53: ONCE, [place] 00 Change sensor every 2 weeks, # 6 ea, Not insulin dependent, Does not use insulin pump, Last DM eval date 09/30/20, 1 Refill(s), Pharmacy: [facility], 172.72, cm, 09/30/20 13:45:00 CDT, Height, 84.182, kg, 09/30/20 13:45:00.. . FreeStyle 2021-0 Yes , # 1 ea, Mem oria Bhupinder 8- Not l [place] 17:27: insulin [place] 00 dependent, Does not use insulin pump, Last DM eval date 09/30/20, 0 Refill(s), Pharmacy: [facility], 172.72... FreeStyle 2021-0 Yes , # 3 ea, Mem oria Bhupinder 8- Not l Sensor 17:27: insulin [place] 00 dependent, Does not use insulin pump, Last DM eval date 09/30/20, 3 Refill(s), Pharmacy: [facility], 172.72... ACCU-CHEK 2021-0 Yes USE TO Univer s GUIDE TEST 6-12 CHECK ity of STRIPS 00:00: BLOOD [place] strip 00 SUGAR Medical TWICE Branch DAILY ACCU-CHEK 2021-0 Yes USE TO Univer s GUIDE TEST 6-12 CHECK ity of STRIPS 00:00: BLOOD [place] strip 00 SUGAR Medical TWICE Branch DAILY ACCU-CHEK 2021-0 Yes USE TO Univer s GUIDE TEST 6-12 CHECK ity of STRIPS 00:00: BLOOD [place] strip 00 SUGAR Medical TWICE Branch DAILY ACCU-CHEK 2021-0 Yes USE TO Univer s GUIDE TEST 6-12 CHECK ity of STRIPS 00:00: BLOOD [place] strip 00 SUGAR Medical TWICE Branch DAILY ACCU-CHEK 2021-0 Yes USE TO Univer s GUIDE TEST 6-12 CHECK ity of STRIPS 00:00: BLOOD [place] strip 00 SUGAR Medical TWICE Branch DAILY ACCU-CHEK 2021-0 Yes USE TO Univer s GUIDE TEST 6-12 CHECK ity of STRIPS 00:00: BLOOD [place] strip 00 SUGAR Medical TWICE Branch DAILY ACCU-CHEK 2021-0 Yes USE TO Pylba s GUIDE TEST 6-12 CHECK ity of STRIPS 00:00: BLOOD [place] strip 00 SUGAR Medical TWICE Branch DAILY glimepiride Yes 4 mg = 1 Me moria 4 mg oral 4-22 tab, PO, l tablet 21:24: Breakfast, Kalie nn 00 # 90 tab, 1 Refill(s), Pharmacy: [facility], 172.72, cm, 03/30/20 14:22:00 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, Height, 95, kg, 03/30/20 14:22:00 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, Weight lisinopril Yes 5 mg = 1 Mem oria 5 mg oral 4-22 tab, PO, l tablet 21:24: Daily, # [place] 00 90 tab, 1 Refill(s), Pharmacy: [facility], 172.72, cm, 03/30/20 14:22:00 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, Height, 95, kg, 03/30/20 14:22:00 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, Weight lovastatin Yes 20 mg = 1 Me moria 20 mg oral 4-22 tab, PO, l tablet 21:24: Bedtime, # Kalie nn 00 90 tab, 1 Refill(s), Pharmacy: [facility], 172.72, cm, 03/30/20 14:22:00 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, Height, 95, kg, 03/30/20 14:22:00 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, Weight Metformin Yes 1,000 mg = Me moria hydrochlori 4-22 1 tab, PO, l de 1000 MG 21:24: BID-Meals, H ermann Oral Tablet 00 # 180 tab, 1 Refill(s), Pharmacy: [facility], 172.72, cm, 03/30/20 14:22:00 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, Height, 95, kg, 03/30/20 14:22:00 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, Weight Metoprolol Yes = 1 tab, Mem oria Succinate 4-22 PO, Daily, l ER 25 mg 21:24: # 90 tab, Herm dereje oral 00 1 tablet, Refill(s), extended Pharmacy: release [facility], 172.72, cm, 03/30/20 14:22:00 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, Height, 95, kg, 03/30/20 14:22:00 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, Weight Metoprolol Yes = 1 tab, Mem oria Succinate 3-31 PO, Daily, l ER 25 mg 19:35: # 90 tab, Herm dereje oral 00 1 tablet, Refill(s), extended Pharmacy: release [facility], 172.72, cm, 03/30/20 14:22:00 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, Height, 95, kg, 03/30/20 14:22:00 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, Weight glimepiride Yes 4 mg = 1 Me moria 4 mg oral 3-31 tab, PO, l tablet 19:35: Breakfast, Kalie nn 00 # 90 tab, 1 Refill(s), Pharmacy: [facility] Mail Delivery, 172.72, cm, 03/30/20 14:22:00 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, Height, 95, kg, 03/30/20 14:22:00 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, Weight lovastatin Yes 20 mg = 1 Me moria 20 mg oral 3-31 tab, PO, l tablet 19:35: Bedtime, # Kalie nn 00 90 tab, 1 Refill(s), Pharmacy: [facility] Mail Delivery, 172.72, cm, 03/30/20 14:22:00 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, Height, 95, kg, 03/30/20 14:22:00 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, Weight Lancets 2021-0 Yes 1 box, Memoria 3-31 MISC, l 19:35: Daily, for [place] 00 once daily glucose testing, # 100 ea, 3 Refill(s), Pharmacy: [facility], 172.72, cm, 03/30/20 14:22:00 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, Height, 95, kg, 03/30/20 14:22:00 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, Weight lisinopril 0 Yes 5 mg = 1 Mem oria 5 mg oral 3-31 tab, PO, l tablet 19:35: Daily, # [place] 00 90 tab, 1 Refill(s), Pharmacy: [facility], 172.72, cm, 03/30/20 14:22:00 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, Height, 95, kg, 03/30/20 14:22:00 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, Weight Metoprolol Yes = 1 tab, Mem oria Succinate 3-22 PO, Daily, l ER 25 mg 21:04: # 90 tab, Herm dereje oral 00 1 tablet, Refill(s), extended Pharmacy: [facility], 172.72, cm, 03/30/20 14:22:00 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, Height, 95, kg, 03/30/20 14:22:00 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, Weight Metformin 0 Yes 1,000 mg = Me moria hydrochlori 3-22 1 tab, PO, l de 1000 MG 21:04: BID-Meals, H ermann Oral Tablet 00 # 180 tab, 1 Refill(s), Pharmacy: [facility], 172.72, cm, 03/30/20 14:22:00 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, Height, 95, kg, 03/30/20 14:22:00 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, Weight lovastatin 0 Yes 20 mg = 1 Me moria 20 mg oral 3-22 tab, PO, l tablet 21:04: Bedtime, # Kalie nn 00 90 tab, 1 Refill(s), Pharmacy: [facility], 172.72, cm, 03/30/20 14:22:00 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, Height, 95, kg, 03/30/20 14:22:00 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, Weight lisinopril 0 Yes 5 mg = 1 Mem oria 5 mg oral 3-22 tab, PO, l tablet 21:04: Daily, # [place] 00 90 tab, 1 Refill(s), Pharmacy: [facility], 172.72, cm, 03/30/20 14:22:00 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, Height, 95, kg, 03/30/20 14:22:00 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, Weight glimepiride Yes 4 mg = 1 Me moria 4 mg oral 3-22 tab, PO, l tablet 21:04: Breakfast, Kalie nn 00 # 90 tab, 1 Refill(s), Pharmacy: [facility], 172.72, cm, 03/30/20 14:22:00 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, Height, 95, kg, 03/30/20 14:22:00 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, Weight Metoprolol 2019-02 Yes = 1 tab, Mem oria Succinate 2-24 PO, Daily, l ER 25 mg 17:44: # 90 tab, Herm dereje oral 00 3 tablet, Refill(s), extended Pharmacy: release [facility], 172.72, cm, 12/09/19 13:14:00 CDT, Height, 91.636, kg, 12/09/19 13:14:00 CDT, Weight Accu-Chek 2019- Yes Insulin Jarod mingo Guide Blood 1-23 Dep:N, # l Glucose 17:55: 200 ea, [place] Test Strips 00 Not insulin dependent, Does not use insulin pump, Last DM eval date 09/03/19, 3 Refill(s), Pharmacy: [facility], 172.72, cm, 12/09/19 13:14:00 CDT, Height, 91.636, kg, 10... glimepiride 2019-02 Yes 4 mg = 1 Me moria 4 mg oral 1-23 tab, PO, l tablet 17:54: Breakfast, Kalie nn 00 # 90 tab, 1 Refill(s), Pharmacy: [facility], 172.72, cm, 12/09/19 13:14:00 CDT, Height, 91.636, kg, 12/09/19 13:14:00 CDT, Weight Nystatin Yes 1 appl, Memori a [id number] 9-09 TOP, TID, l UNT/ML 20:18: PRN Rash, Tomas n Topical 00 # 30 gm, 3 Cream Refill(s), Pharmacy: [facility], 172.72, cm, 11/04/19 14:58:00 CDT, Height, 93.091, kg, 11/04/19 14:58:00 CDT, Weight FreeStyle 2020-0 Yes , # 1 ea, Mem oria Bhupinder - Insulin l [place] 19:28: dependent, Kalie nn 00 Does not use insulin pump, Last DM eval date 09/16/19, 0 Refill(s), Pharmacy: [facility], 172.72, cm... FreeStyle 2020-0 Yes See Memoria Bhupinder - Instructio l Sensor 19:28: ns, MISC, Tomas n 00 change every 14 days, # 6 ea, Insulin dependent, Does not use insulin pump, Last DM eval date 09/16/19, 3 Refill(s), Pharmacy: [facility], 172.72, cm, 09/03/19 10:34:00 CDT, Height, 93.636, kg, 09/16/19 13:51:00 CDT,... Accu-Chek 2020-0 Yes Insulin Jarod mingo Guide Blood 09-06 Dep:N, # l Glucose 16:24: 100 ea, [place] Test Strips 00 Not insulin dependent, Does not use insulin pump, Last DM eval date 09/03/19, 3 Refill(s), Pharmacy: [facility], 172.72, cm, 09/03/19 10:34:00 CDT, Height, 92.455, kg, 0... Lancets 2020-0 Yes 1 box, Memoria 09-06 MISC, l 16:24: Daily, for [place] 00 once daily glucose testing, # 100 ea, 3 Refill(s), Pharmacy: [facility], 172.72, cm, 09/03/19 10:34:00 CDT, Height, 92.455, kg, 09/03/19 10:34:00 CDT, Weight glimepiride 2020-0 Yes 4 mg = 1 Me moria 4 mg oral 7- tab, PO, l tablet 16:27: Breakfast, Kalie nn 00 # 90 tab, 1 Refill(s), Pharmacy: [facility], 172.72, cm, 09/03/19 10:34:00 CDT, Height, 92.455, kg, 09/03/19 10:34:00 CDT, Weight Aspirin 81 2020-0 Yes 81 mg = 1 Me moria MG Enteric 7-09 tab, PO, l Coated 16:15: Daily, # [place] Tablet 00 90 tab, 3 Refill(s) lisinopril 2020-0 Yes 5 mg = 1 Mem oria 5 mg oral 7-09 tab, PO, l tablet 16:10: Daily, # [place] 00 90 tab, 1 Refill(s), Pharmacy: [facility], 172.72, cm, 09/03/19 10:34:00 CDT, Height, 92.455, kg, 09/03/19 10:34:00 CDT, Weight lovastatin 2020-0 Yes 20 mg = 1 Me moria 20 mg oral 7-09 tab, PO, l tablet 16:10: Bedtime, # Kalie nn 00 90 tab, 1 Refill(s), Pharmacy: [facility], 172.72, cm, 09/03/19 10:34:00 CDT, Height, 92.455, kg, 09/03/19 10:34:00 CDT, Weight Metformin 2020-0 Yes 1,000 mg = Me moria hydrochlori 7- 1 tab, PO, l de 1000 MG 16:10: BID-Meals, H ermann Oral Tablet 00 # 180 tab, 1 Refill(s), Pharmacy: [facility], 172.72, cm, 09/03/19 10:34:00 CDT, Height, 92.455, kg, 09/03/19 10:34:00 CDT, Weight metoprolol 2020-0 Yes 25 mg = 1 Me moria succinate 7-09 cap, PO, l 25 mg oral 16:10: Daily, # Her kline capsule, 00 90 cap, 1 extended Refill(s), release Pharmacy: [facility], 172.72, cm, 09/03/19 10:34:00 CDT, Height, 92.455, kg, 09/03/19 10:34:00 CDT, Weight Metformin 2020-0 No 1,000 mg = Me moria hydrochlori 09-02 1 tab, PO, l de 1000 MG 15:43: BID-Meals, H ermann Oral Tablet 00 # 180 tab, 1 Refill(s) metoprolol 2020-0 No 25 mg = 1 Me moria succinate - cap, PO, l 25 mg oral 15:43: Daily, 0 Her kline capsule, 00 Refill(s) extended release Multi 2020-0 Yes 0 Memoria Vitamin+ 7- Refill(s) l 15:43: [place] 00 Acetaminoph 2020-0 Yes 325 mg = 1 Memoria en 325 MG - cap, PO, l Oral 15:43: TID, 0 [place] Capsule 00 Refill(s) [Tylenol] acyclovir 2019-0 Yes 800 mg = 1 Me moria 800 mg oral - tab, PO, l tablet 15:43: 5X Day, # Tomas n 00 50 tab, 0 Refill(s) Aspirin 2020-0 No 0 Memoria 7- Refill(s) l 15:43: [place] 00 dulaglutide 2020-0 Yes SUB-Q, 0 Me moria 1.5 mg/0.5 7- Refill(s) l mL 15:43: [place] subcutaneou 00 s solution Glipizide 5 2020-0 No 5 mg = 1 Me moria MG Oral - tab, PO, l Tablet 15:43: Before [place] 00 Breakfast, # 90 tab, 0 Refill(s) lisinopril 2020-0 No 5 mg = 1 Mem oria 5 mg oral 7- tab, PO, l tablet 15:43: Daily, # [place] 00 90 tab, 0 Refill(s) lovastatin 2020-0 No 20 mg = 1 Me moria 20 mg oral 7-09 tab, PO, l tablet 15:43: Bedtime, # Kalie nn 00 90 tab, 0 Refill(s) Immunizations Ordered Filled Immunization Date Status Comments [facility] e Immunization Name Name SARS-COV-2 COVID-19 2020-11-07 Completed Unive rsity of PFIZER VACCINE 00:00:00 [facility] SARS-COV-2 COVID-19 2020-11-07 Completed Unive rsity of PFIZER VACCINE 00:00:00 [facility] SARS-COV-2 COVID-19 2020-11-07 Completed Unive rsity of PFIZER VACCINE 00:00:00 [facility] SARS-COV-2 COVID-19 2020-11-07 Completed Unive rsity of PFIZER VACCINE 00:00:00 [facility] SARS-COV-2 COVID-19 2020-11-07 Completed Unive rsity of PFIZER VACCINE 00:00:00 [facility] SARS-COV-2 COVID-19 2020-11-07 Completed Unive rsity of PFIZER VACCINE 00:00:00 [facility] SARS-COV-2 COVID-19 2020-11-07 Completed Unive rsity of PFIZER VACCINE 00:00:00 [facility] [id number] 2020-04-23 Completed Memor ial [place] [id number] 15:42:10 ER<sup>1, 2</sup> [id number] 2020-04-02 Completed Memor ial [place] [id number] 22:24:09 ER<sup>3, 4</sup> influenza virus 2019-11-04 Completed [facility] [place] vaccine, 20:57:00 inactivated<sup>1</ sup> influenza virus 2019-11-04 Completed [facility] [place] vaccine, 20:57:00 inactivated<sup>5</ sup> influenza virus 2019-11-04 Completed [facility] [place] vaccine, 20:57:00 inactivated<sup>1</ sup> Pneumococcal 2009-11-22 Completed University o f Polysaccharide, 00:00:00 [place] Med ical PPSV23 (PNEUMOVAX) Branch Pneumococcal 2009-11-22 Completed University o f Polysaccharide, 00:00:00 [place] Med ical PPSV23 (PNEUMOVAX) Branch Pneumococcal 2009-11-22 Completed University o f Polysaccharide, 00:00:00 [place] Med ical PPSV23 (PNEUMOVAX) Branch Pneumococcal 2009-11-22 Completed University o f Polysaccharide, 00:00:00 [place] Med ical PPSV23 (PNEUMOVAX) Branch Pneumococcal 2009-11-22 Completed University o f Polysaccharide, 00:00:00 [place] Med ical PPSV23 (PNEUMOVAX) Branch Pneumococcal 2009-11-22 Completed University o f Polysaccharide, 00:00:00 [facility] [place] [facility] ical PPSV23 (PNEUMOVAX) Branch Pneumococcal 2009-11-22 Completed University o f Polysaccharide, 00:00:00 [facility] [place] [facility] ical PPSV23 (PNEUMOVAX) Branch Influenza Virus 2005-12-05 Completed Universit y of Vaccine 00:00:00 [facility] Influenza Virus 2005-12-05 Completed Universit y of Vaccine 00:00:00 [facility] Influenza Virus 2005-12-05 Completed Universit y of Vaccine 00:00:00 [facility] Influenza Virus 2005-12-05 Completed Universit y of Vaccine 00:00:00 [facility] Influenza Virus 2005-12-05 Completed Universit y of Vaccine 00:00:00 [facility] Influenza Virus 2005-12-05 Completed Universit y of Vaccine 00:00:00 [facility] Influenza Virus 2005-12-05 Completed Universit y of Vaccine 00:00:00 [facility] Vital Signs Vital Name Observation Time Observation Value Comments Source Systolic blood 2021-02-08 16:55:00 143 mm[Hg] Univer sity of pressure [facility] Diastolic blood 2021-02-08 16:55:00 76 mm[Hg] Unive rsity of pressure [facility] Heart rate 2021-02-08 16:54:00 101 /min [facility] Body temperature 2021-02-08 16:54:00 [facility] 2021-02-08 16:54:00 18 /min [facility] Body height 2021-02-08 16:54:[address] [facility] Body weight 2021-02-08 16:54:[address] [facility] BMI 2021-02-08 16:54:00 28.30 kg/m2 [facility] Oxygen saturation in 2021-02-08 16:54:00 95 /min [facility] Arterial blood by [facility] Pulse oximetry Branch Systolic (mm Hg) 2020-09-30 18:45:00 Jarod Okeefe Diastolic (mm Hg) 2020-09-30 18:45:00 Mem orial [place] Heart Rate 2020-09-30 18:45:00 [facility] Temperature Oral (F) 2020-09-30 18:45:00 98.7 F [facility] [place] Height 2020-09-30 18:45:00 172.72 cm [facility] [place] Weight 2020-09-30 18:45:00 [facility] [place] BMI Calculated 2020-09-30 18:45:00 Memori al [place] Systolic (mm Hg) 2020-07-27 16:11:00 Jarod rial [place] Diastolic (mm Hg) 2020-07-27 16:11:00 Mem orial [place] Heart Rate 2020-07-27 16:11:00 [facility] [place] Temperature Oral (F) 2020-07-27 16:11:00 98.1 F [facility] [place] Height 2020-07-27 16:11:00 172.72 cm [facility] [place] Weight 2020-07-27 16:11:00 [facility] [place] BMI Calculated 2020-07-27 16:11:00 Memori al [place] Systolic (mm Hg) 2020-03-30 20:22:00 Jarod rial [place] Diastolic (mm Hg) 2020-03-30 20:22:00 Mem orial [place] Heart Rate 2020-03-30 20:22:00 [facility] [place] Height 2020-03-30 20:22:00 172.72 cm [facility] [place] Weight 2020-03-30 20:22:00 [facility] [place] BMI Calculated 2020-03-30 20:22:00 Memori al [place] Systolic (mm Hg) 2020-03-29 19:02:00 Jarod rial [place] Diastolic (mm Hg) 2020-03-29 19:02:00 Mem orial [place] Heart Rate 2020-03-29 19:02:00 [facility] [place] Temperature Oral (F) 2020-03-29 19:02:00 98.7 F [facility] [place] Height 2020-03-29 19:02:00 172.72 cm [facility] [place] Weight 2020-03-29 19:02:00 [facility] [place] BMI Calculated 2020-03-29 19:02:00 Memori al [place] Systolic (mm Hg) 2019-12-09 18:14:00 Jarod rial [place] Diastolic (mm Hg) 2019-12-09 18:14:00 Mem orial [place] Heart Rate 2019-12-09 18:14:00 [facility] [place] Respitory Rate 2019-12-09 18:14:00 Memori al [place] Temperature Oral (F) 2019-12-09 18:14:00 98.1 F [facility] [place] Height 2019-12-09 18:14:00 172.72 cm [facility] [place] Weight 2019-12-09 18:14:00 [facility] [place] BMI Calculated 2019-12-09 18:14:00 Memori al [place] Systolic (mm Hg) 2019-12-02 15:46:00 Jarod rial [place] Diastolic (mm Hg) 2019-12-02 15:46:00 Mem orial [place] Heart Rate 2019-12-02 15:46:00 [facility] [place] Height 2019-12-02 15:46:00 172.72 cm [facility] [place] Weight 2019-12-02 15:46:00 [facility] [place] BMI Calculated 2019-12-02 15:46:00 Memori al [place] Systolic (mm Hg) 2019-11-04 19:58:00 Jarod rial [place] Diastolic (mm Hg) 2019-11-04 19:58:00 Mem orial [place] Heart Rate 2019-11-04 19:58:00 [facility] [place] Respitory Rate 2019-11-04 19:58:00 Memori al [place] Temperature Oral (F) 2019-11-04 19:58:00 98.0 F [facility] Height 2019-11-04 19:58:00 172.72 cm [facility] Weight 2019-11-04 19:58:00 [facility] BMI Calculated 2019-11-04 19:58:00 [facility] [place] Systolic (mm Hg) 2019-09-16 18:51:00 [facility] [place] Diastolic (mm Hg) 2019-09-16 18:51:00 [facility] [place] Heart Rate 2019-09-16 18:51:00 [facility] Respitory Rate 2019-09-16 18:51:00 [facility] Weight 2019-09-16 18:51:00 [facility] Systolic (mm Hg) 2019-09-03 15:34:00 [facility] [place] Diastolic (mm Hg) 2019-09-03 15:34:00 [facility] Heart Rate 2019-09-03 15:34:00 [facility] Respitory Rate 2019-09-03 15:34:00 [facility] Temperature Oral (F) 2019-09-03 15:34:00 98.7 F Justice Okeefe Height 2019-09-03 15:34:00 172.72 cm Justice Okeefe Weight 2019-09-03 15:34:00 Justice Okeefe BMI Calculated 2019-09-03 15:34:00 Mack Russ Procedures Procedure Date / Time Performing Clinician Source Performed MEDICAL 2021-08-30 05:01:00 Doctor Unassigned, No [facility] RELEASE/CLEARANCE FORMS Name [facility] POCT MOLECULAR FLU 2021-02-08 17:10:00 Unknown, Attending [facility] POCT MOLECULAR STREP 2021-02-08 17:06:00 Unknown, Attending [facility] Colonoscopy 2017-06-25 05:00:00 Justice kline Diabetic retinal eye 2017-03-28 06:00:00 Da Okeefe exam Insertion of coronary 2007-02-25 00:00:00 Mack Russ artery stent Tonsillectomy 1974-02-25 00:00:00 Justice kline Encounters Start End Encounter Admission Attending Care Care Encounter Source Date/Time Date/Time Type Type Clinicians Facility Department ID 2021-08-30 Outpatient Emily MCKEON [facility] OPH [id number] Univers 14:57:48 ELIS [facility] 2021-10-23 2021-10-23 [facility] [id number] Univers 00:00:00 00:00:00 Rashi PRABHAKAR 350.1.13.10 i [facility] [place] [phone] Ar dical NAL [address] [place] [address] 2021-08-31 2021-08-31 Outpatient Emily MCKEON [facility] [id number] Univers 13:30:00 13:30:00 ELIS [id number] [facility] 2021-08-30 2021-08-30 Telephone MOHAN Chavarria [id number] Univers 00:00:00 00:00:00 Shadia [place] [facility]1.13.10 [facility] 4.2.7.2.686 [place] [phone] [facility] [address] [place] 2021-08-30 2021-08-30 Orders Doctor MOHAN 1.2.840.114 [id number] Univers 00:00:00 00:00:00 Only Unassigned, NAN 350.1.13.10 ity of [place] [facility] 4.2.7.2.686 [place] [id number] [facility] [address] [place] 2021-06-05 2021-06-05 Telephone [facility] 1.2.840.114 [id number] Univers 00:00:00 00:00:00 Rashi PRABHAKAR 350.1.13.10 i ty [place] [id number] Ar dical NAL 231 [facility] 2021-05-19 2021-05-19 Refill [facility] 1.2.840.114 [id number] Univers 00:00:00 00:00:00 Rashi PRABHAKAR 350.1.13.10 i ty [place] [phone] Ar dical NAL 044 [facility] 2021-05-13 2021-05-13 [facility] [id number] Univers 14:30:00 14:30:00 MOHAN y [facility] 2021-05-13 2021-05-13 Outpatient R [facility] [id number] Univers 14:30:00 14:30:00 [id number] ity [facility] 2021-03-23 2021-03-23 Outpatient R DEON [facility] [id number] Univers 10:00:00 10:00:00 SENDIL ity [facility] 2021-02-08 2021-02-08 Outpatient R [facility] [id number] Univers 10:40:00 11:36:57 SALOME ity [facility] 2021-02-08 2021-02-08 Urgent Salome Zuniga [facility] 1.2.840. [id number] Univers 10:40:00 11:36:57 Care Unknown, Attending HEALTH 350.1.13.10 ity of [place] 4.2.7.2.686 [place] as ALEIDA?BLEA [phone] Ar edmundo VASQUEZEY [address] [facility] 2021-02-08 2021-02-08 Outpatient R [facility] [id number] Univers 10:40:00 10:40:00 [id number] [facility] 2021-02-03 2021-02-03 Telephone [facility] 1.2.840.114 [id number] Univers 00:00:00 00:00:00 Rashi [facility] 350.1.13.10 i [facility] 4.2.7.2.[place] [phone] Ar edmundo BAUGH [address] [place] [address] 2021-01-18 2021-01-18 Outpatient R [facility] [id number] Univers 14:49:04 23:59:00 RASHI [facility] 2020-11-01 2020-11-03 Phone nullFlavo [facility] [id number] Memoria 15:02:33 04:59:59 Message r Primary 14 l Care [facility] 2020-11-01 2020-11-02 Outpatient MHMG [facility] [id number] 10:02:33 23:59:59 14 2020-10-10 2020-10-12 Phone nullFlavo [facility] [id number] Memoria 21:39:19 04:59:59 Message r Primary 13 l Care Scooby Rodrigesa 2020-10-10 2020-10-11 Outpatient MH[facility] [id number] 16:39:19 23:59:59 13 2020-10-07 2020-10-09 Phone nullFlavo [facility] [id number] Memoria 20:48:55 04:59:59 Message r Primary 12 l Care Scooby Jade 2020-10-07 2020-10-08 Outpatient MHMG [facility] [id number] 15:48:55 23:59:59 12 2020-10-04 2020-10-06 Phone nullFlavo [facility] [id number] Memoria 14:49:33 04:59:59 Message r Primary 11 l Care Scooby Jade 2020-10-04 2020-10-05 Outpatient MHMG [facility] [id number] 09:49:33 23:59:59 11 2020-10-03 2020-10-05 Phone nullFlavo [facility] [id number] Memoria 15:13:30 04:59:59 Message r Primary 10 susanna Jade nn 2020-10-03 2020-10-04 Outpatient MHMG [facility] [id number] 10:13:30 23:59:59 10 2020-10-02 2020-10-03 Between nullFlavo [facility] [id number] Memoria 13:35:43 13:35:43 Visit r Primary 15 susanna Jade 2020-10-02 2020-10-03 Outpatient MHMG [facility] [id number] 08:35:43 08:35:43 15 2020-09-30 2020-10-01 Outpatient nullFlavo [facility] [id number] Memoria 19:30:00 04:59:59 r Primary 09 susanna Jade 2020-09-30 2020-09-30 Outpatient Ginny MG [facility] [id number] 14:30:00 23:59:59 Wilber 09 Flakito 2020-09-30 2020-09-30 Outpatient MHIE MHIE [id number] Memoria 14:30:00 14:30:00 09 susanna kOeefe 2020-08-08 2020-08-10 Phone nullFlavo [facility] [id number] Memoria 15:07:36 04:59:59 Message r Primary 09 susanna Jade 2020-08-08 2020-08-09 Outpatient MHMG [facility] [id number] 10:07:36 23:59:59 09 2020-07-27 2020-07-28 Outpatient nullFlavo [facility] [id number] Memoria 16:15:00 04:59:59 r Primary 08 susanna Jade 2020-07-27 2020-07-27 Outpatient Ellsworth, MHMG MH[facility] [id number] 11:15:00 23:59:59 Rome Gagandeep 08 2020-07-27 2020-07-27 Outpatient MHIE MHIE [id number] Memoria 11:15:00 11:15:00 08 susanna Okeefe 2020-06-14 2020-06-16 Phone nullFlavo [facility] [id number] Memoria 22:08:19 04:59:59 Message r Primary 08 l Afua Jade nn 2020-06-14 2020-06-15 Outpatient MHMG MH[facility] [id number] 17:08:19 23:59:59 08 2020-05-24 2020-05-26 Phone nullFlavo [facility] [id number] Memoria 20:49:48 04:59:59 Message r Primary 07 l Afua Jade nn 2020-05-24 2020-05-25 Outpatient MHMG [facility] [id number] 15:49:48 23:59:59 07 2020-05-16 2020-05-18 Phone nullFlavo [facility] [id number] Memoria 19:52:03 04:59:59 Message r Primary 06 l Afua Jade nn 2020-05-16 2020-05-17 Outpatient MHMG [facility] [id number] 14:52:03 23:59:59 06 2020-03-30 2020-03-31 Outpatient nullFlavo [facility] [id number] Memoria 20:15:00 05:59:59 r Primary 05 susanna Afua [place] 2020-03-30 2020-03-30 Outpatient Cornelius, MHMG MH[facility] [id number] 14:15:00 23:59:59 Sergio Venegas 2020-03-30 2020-03-30 Outpatient MHIE MHIE [id number] Memoria 14:15:00 14:15:00 05 susanna Okeefe 2020-03-29 2020-03-30 Outpatient nullFlavo [facility] [id number] Memoria 19:30:00 05:59:59 r Primary 07 l Afua Jade mario 2020-03-29 2020-03-29 Outpatient Ellsworth, MHMG [facility] [id number] 13:30:00 23:59:59 Rome Gagandeep 07 2020-03-29 2020-03-29 Outpatient MHIE MHIE [id number] Memoria 13:30:00 13:30:00 07 susanna Okeefe 2020-02-18 2020-02-20 Phone nullFlavo [facility] [id number] Memoria 17:03:38 05:59:59 Message r Primary 05 l Afua Jade mario 2020-02-18 2020-02-19 Outpatient MHMG [facility] [id number] 11:03:38 23:59:59 05 2020-01-18 2020-01-20 Phone nullFlavo [facility] [id number] Memoria 15:29:34 05:59:59 Message r Primary 04 l Care Scooby Jade mario 2020-01-18 2020-01-19 Outpatient MHMG MH[facility] [id number] 09:29:34 23:59:59 04 2019-12-21 2019-12-22 Between nullFlavo [facility] [id number] Memoria 13:31:27 13:31:27 Visit r Primary 07 l Care Scooby Jade mario 2019-12-21 2019-12-22 Outpatient MHMG MH[facility] [id number] 08:31:27 08:31:27 07 2019-12-18 2019-12-19 Outpt Diag nullFlavo [facility] [id number] Memoria 18:33:00 04:59:00 Services r Outpatient 00 l Karen Okeefe [place] 2019-12-18 2019-12-18 Outpatient Ramirez, MHOIP MHOIP [id number] 13:33:00 23:59:00 Maylin R 00 2019-12-10 2019-12-11 Between nullFlavo MHMG [id number] Memoria 18:10:12 18:10:12 Visit r Primary 06 l Care Scooby Jade mario 2019-12-10 2019-12-11 Outpatient MHMG MHMG [id number] 13:10:12 13:10:12 06 2019-12-09 2019-12-10 Outpatient nullFlavo [facility] [id number] Memoria 18:30:00 04:59:59 r Primary 06 l Care Scooby Jade mario 2019-12-09 2019-12-09 Outpatient Ramirez, MHMG MH[facility] [id number] 13:30:00 23:59:59 Maylin 06 2019-12-09 2019-12-09 Outpatient MHIE MHIE [id number] Memoria 13:30:00 13:30:00 06 susanna Okeefe 2019-12-03 2019-12-04 Between nullFlavo [facility] [id number] Memoria 13:00:07 13:00:07 Visit r Primary 05 l Care Jocelyne Jade mario Monsivais 2019-12-03 2019-12-04 Outpatient MHMG MHMG [id number] 08:00:07 08:00:07 05 2019-12-02 2019-12-03 Outpatient nullFlavo [facility] [id number] Memoria 16:00:00 04:59:59 r Primary 03 l Afua [place] 2019-12-02 2019-12-02 Outpatient Cornelius, MHMG MHMG [id number] 11:00:00 23:59:59 Edward 03 Theo 2019-12-02 2019-12-02 Outpatient MHIE MHIE [id number] Memoria 11:00:00 11:00:00 03 susanna Okeefe 2019-11-30 2019-12-02 Phone nullFlavo [facility]MG [id number] Memoria 13:09:16 04:59:59 Message r Primary 03 l Afua Jade mario 2019-11-30 2019-12-01 Outpatient MHMG MHMG [id number] 08:09:16 23:59:59 03 2019-11-04 2019-11-05 Outpatient nullFlavo [facility] [id number] Memoria 20:30:00 04:59:59 r Primary 04 l Afua Jade mario 2019-11-04 2019-11-04 Outpatient James, MHMG MHMG [id number] 15:30:00 23:59:59 Maylin 04 2019-11-04 2019-11-04 Outpatient MHIE MHIE [id number] Memoria 15:30:00 15:30:00 04 susanna [place] 2019-09-16 2019-09-17 Outpatient nullFlavo MHMG [id number] Memoria 18:50:00 04:59:59 r Primary 02 l Afua Jocelyne Kalie mario Monsivais 2019-09-15 2019-09-17 Phone nullFlavo MHMG [id number] Memoria 16:46:03 04:59:59 Message r Primary 02 l Afua Velazquez [facility] 2019-09-16 2019-09-16 Outpatient Cornelius, MHMG MHMG [id number] 13:50:00 23:59:59 Edward 02 Theo 2019-09-15 2019-09-16 Outpatient MHMG MHMG [id number] 11:46:03 23:59:59 02 2019-09-16 2019-09-16 Outpatient MHIE MHIE [id number] Memoria 13:50:00 13:50:00 02 l [place] 2019-09-14 2019-09-14 Ambulatory nullFlavo [facility]MG [id number] Memoria 15:00:00 15:00:00 Pre-Reg r Primary 01 l Care Jocelyne Monsivais 2019-09-14 2019-09-14 Outpatient MHIE MHIE [id number] Memoria 10:00:00 10:00:00 01 susanna RodrigesSwanzey 2019-09-14 2019-09-14 Outpatient Cornelius, MHMG MG [id number] 10:00:00 10:00:00 Edward Igor Venegas 2019-09-07 2019-09-09 Phone nullFlavo MHMG [id number] Memoria 16:49:31 04:59:59 Message r Primary 01 l Care Scooby martin 2019-09-07 2019-09-09 Phone nullFlavo [facility] [id number] Memoria 16:48:56 04:59:59 Message r Primary 00 l Care Scooby Jade 2019-09-07 2019-09-08 Outpatient MHMG MHMG [id number] 11:49:31 23:59:59 01 2019-09-07 2019-09-08 Outpatient MHMG MHMG [id number] 11:48:56 23:59:59 00 2019-09-07 2019-09-08 Between nullFlavo MHMG [id number] Memoria 16:23:57 16:23:57 Visit r Primary 00 l Care Scooby Jade 2019-09-07 2019-09-08 Outpatient MHMG MHMG [id number] 11:23:57 11:23:57 00 2019-09-03 2019-09-04 [place] [id number] Memoria 15:30:00 04:59:59 r Primary 00 l Care Scooby Jade 2019-09-03 2019-09-03 [place] [id number] 10:30:00 23:59:59 Rome Gagandeep 00 2019-09-03 2019-09-03 Outpatient MHIE MHIE [id number] Memoria 10:30:00 10:30:00 00 susanna Okeefe Results Test Description Test Time Test Comments Results Result Comments Source POCT MOLECULAR FLU 2021-02-08 17:22:11 Test Item Value Reference Range Interpretation Comme nts POCT Molecular FluA (test code = 31061-5) Negative Negative POCT Molecular FluB (test code = 63070-9) Negative Negative Lab Interpretation (test code = 92497-8) [facility] [id number] 17:16:00 Test Item Value Reference Range Interpretation Comments POCT Molecular Strep (test code = Negative Negative 79624-4) Lab Interpretation (test code = Normal 91864-6) [facility] [id number] 20:18:00 Test Item Value Reference Range Interpretation Comments Glucose Lvl (test code = Glucose Lvl) 54 65-99 [id number] 20:18:00 Test Item Value Reference Range Interpretation Comments BUN (test code = BUN) 20 7-25 [id number] 20:18:00 Test Item Value Reference Range Interpretation Comments Creatinine Lvl (test code = Creatinine 1.02 0.70-1.18 Lvl) [facility] [id number] 20:18:00 Test Item Value Reference Range Interpretation Comments eGFR NON-AFR. VINCENTIAN (test code = 72 eGFR NON-AFR. VINCENTIAN) [facility] [id number] 20:18:00 Test Item Value Reference Range Interpretation Comments eGFR (test code = eGFR 84 ) [facility] [id number] 20:18:00 Test Item Value Reference Range Interpretation Comments B/C Ratio (test code = B/C NOT APPLICABLE 6-22 Ratio) [facility] [id number] 20:18:00 Test Item Value Reference Range Interpretation Comments Sodium Lvl (test code = Sodium Lvl) 141 135-146 [facility] [id number] 20:18:00 Test Item Value Reference Range Interpretation Comments Potassium Lvl (test code = Potassium 4.8 3.5-5.3 Lvl) [facility] [id number] 20:18:00 Test Item Value Reference Range Interpretation Comments Chloride Lvl (test code = Chloride Lvl) 102 98-110 [facility] [id number] 20:18:00 Test Item Value Reference Range Interpretation Comments CO2 (test code = CO2) 29 20-32 [facility] [id number] 20:18:00 Test Item Value Reference Range Interpretation Comments Calcium Lvl (test code = Calcium Lvl) 10.0 8.6-10.3 [place] 225181-08-06 20:18:00 Test Item Value Reference Range Interpretation Comments Total Protein (test code = Total 7.1 6.1-8.1 Protein) [place] 225181-08-06 20:18:00 Test Item Value Reference Range Interpretation Comments Albumin Lvl (test code = Albumin Lvl) 4.7 3.6-5.1 [place] 225181-08-06 20:18:00 Test Item Value Reference Range Interpretation Comments Globulin (test code = Globulin) 2.4 1.9-3.7 [place] 225181-08-06 20:18:00 Test Item Value Reference Range Interpretation Comments A/G Ratio (test code = A/G Ratio) 2.0 1.0-2.5 [place] 225181-08-06 20:18:00 Test Item Value Reference Range Interpretation Comments Bili Total (test code = Bili Total) 0.3 0.2-1.2 [place] 225181-08-06 20:18:00 Test Item Value Reference Range Interpretation Comments Alk Phos (test code = Alk Phos) 69 35-144 [facility]2021-08-06 20:18:00 Test Item Value Reference Range Interpretation Comments ASPARTATE TRANSAMINASE (test code = 18 10-35 ASPARTATE TRANSAMINASE) [facility]2021-08-06 20:18:00 Test Item Value Reference Range Interpretation Comments ALANINE AMINOTRANSFERASE (test code = 21 9-46 ALANINE AMINOTRANSFERASE) [place] [id number] 20:18:00 Test Item Value Reference Range Interpretation Comments WBC X 10x3 (test code = WBC X 10x3) 15.6 3.8-10.8 [place] [id number] 20:18:00 Test Item Value Reference Range Interpretation Comments RBC X 10x6 (test code = RBC X 10x6) 4.48 4.20-5.80 [place] 414711-08-06 20:18:00 Test Item Value Reference Range Interpretation Comments Hgb (test code = Hgb) 14.2 13.2-17.1 [place] 414711-08-06 20:18:00 Test Item Value Reference Range Interpretation Comments Hct (test code = Hct) 41.1 38.5-50.0 [facility]VdyqhcnALCUYKAMNT1834-78-34 20:18:00 Test Item Value Reference Range Interpretation Comments MCV (test code = MCV) 91.7 80.0-100.0 [place] 414711-08-06 20:18:00 Test Item Value Reference Range Interpretation Comments MCH (test code = MCH) 31.7 pg 27.0-33.0 [facility] HospitalVfyazdhJBCLAPYGUI5826-50-21 20:18:00 Test Item Value Reference Range Interpretation Comments MCHC (test code = MCHC) 34.5 32.0-36.0 [facility] HospitalWcwhlycGZHMZFCQVR1507-56-59 20:18:00 Test Item Value Reference Range Interpretation Comments RDW (test code = RDW) 13.5 11.0-15.0 [facility] HospitalDgszjvpZPXOOGLHWP4199-49-21 20:18:00 Test Item Value Reference Range Interpretation Comments Platelet (test code = Platelet) 224 140-400 [facility] HospitalUwxcdlfRYVGBTHTQC1671-15-57 20:18:00 Test Item Value Reference Range Interpretation Comments MPV (test code = MPV) 11.6 7.5-12.5 [facility] HospitalFjynftiXIEKCEVRQR4550-90-19 20:18:00 Test Item Value Reference Range Interpretation Comments Neutrophils # (test code = Neutrophils 9032 6406-3221 #) [facility] HospitalKdjoqizNFOMZECYHN5348-23-61 20:18:00 Test Item Value Reference Range Interpretation Comments Lymphocytes # (test code = Lymphocytes 4867 850-3900 #) [facility] HospitalCypooczDKXXUMTSZP1903-08-95 20:18:00 Test Item Value Reference Range Interpretation Comments Monocytes # (test code = Monocytes #) 1326 200-950 [facility] HospitalGwlxwycWAVTCZZNAM8794-40-35 20:18:00 Test Item Value Reference Range Interpretation Comments Eosinophils # (test code = Eosinophils 312 15-500 #) [facility] HospitalLvxykmuZAVEGBLGGA0902-93-89 20:18:00 Test Item Value Reference Range Interpretation Comments Basophils # (test code 62 See_Comment [Aut omated message] The = Basophils #) system which generated this result tra nsmitted reference range : <=200. The reference r leyla was not used to int erpret this result as normal/abnormal . [facility] HospitalByldjhgRINEVKBXVF1194-82-42 20:18:00 Test Item Value Reference Range Interpretation Comments Segs (test code = Segs) 57.9 [facility]FSODIBHQW9732-12-72 20:18:00 Test Item Value Reference Range Interpretation Comments Lymphocytes (test code = Lymphocytes) 31.2 [facility] HospitalHhtifwmGHYUIZPXXS1477-54-65 20:18:00 Test Item Value Reference Range Interpretation Comments Monocytes (test code = Monocytes) 8.5 [facility] HospitalFxskmxdJBTWZWGQHL9375-52-57 20:18:00 Test Item Value Reference Range Interpretation Comments Eosinophils (test code = Eosinophils) 2.0 [facility] HospitalQgiaccuMGSZYRSPPC5271-46-49 20:18:00 Test Item Value Reference Range Interpretation Comments Basophils (test code = Basophils) 0.4 [facility]AnxqhkoVHZFTC1457-72-63 20:18:00 Test Item Value Reference Range Interpretation Comments Chol (test code = Chol) 177 [facility]viewWxtbpiwHYBYOI9582-71-60 20:18:00 Test Item Value Reference Range Interpretation Comments HDL (test code = HDL) 53 [facility] LongviewZizahlzIQBNDE7882-19-40 20:18:00 Test Item Value Reference Range Interpretation Comments Trig (test code = Trig) 92 [facility] LongviewTmdbyccZQMYYF6041-34-64 20:18:00 Test Item Value Reference Range Interpretation Comments LDL (Calculated) (test code = LDL 105 (Calculated)) [facility] LongviewJtqczfpHZMTRQ3716-18-82 20:18:00 Test Item Value Reference Range Interpretation Comments CHD Risk (test code = CHD Risk) 3.3 [facility] LongviewFgkgwphXQEXNO8318-44-50 20:18:00 Test Item Value Reference Range Interpretation Comments Non HDL Chol (test code = Non HDL Chol) 124 [facility]viewHy-DriveC[facility] EXVOSMZOP7526-64-47 20:18:00 Test Item Value Reference Range Interpretation Comments Hgb A1C (test code = Hgb A1C) 5.4 [facility] LongviewManifest QWSURRCMP5171-01-26 20:59:00 Test Item Value Reference Range Interpretation Comments Hgb A1C (test code = Hgb A1C) 6.7 [facility] [employer] [id number] 18:40:00 Test Item Value Reference Range Interpretation Comments Magnesium Lvl (test code = Magnesium 2.0 1.5-2.5 Lvl) [facility] [employer] [id number] 18:34:00 Test Item Value Reference Range Interpretation Comments Glucose Lvl (test code = Glucose Lvl) 176 65-99 [place] 225180-10-14 18:34:00 Test Item Value Reference Range Interpretation Comments BUN (test code = BUN) 23 7-25 [place] 225180-10-14 18:34:00 Test Item Value Reference Range Interpretation Comments Creatinine Lvl (test code = Creatinine 1.14 0.70-1.18 Lvl) [facility]2020-10-14 18:34:00 Test Item Value Reference Range Interpretation Comments eGFR NON-AFR. VINCENTIAN (test code = 63 eGFR NON-AFR. VINCENTIAN) [facility]2020-10-14 18:34:00 Test Item Value Reference Range Interpretation Comments eGFR (test code = eGFR 74 ) [facility]2020-10-14 18:34:00 Test Item Value Reference Range Interpretation Comments B/C Ratio (test code = B/C NOT APPLICABLE 6-22 Ratio) [facility]2020-10-14 18:34:00 Test Item Value Reference Range Interpretation Comments Sodium Lvl (test code = Sodium Lvl) 139 135-146 [facility]2020-10-14 18:34:00 Test Item Value Reference Range Interpretation Comments Potassium Lvl (test code = Potassium 4.8 3.5-5.3 Lvl) [facility]2020-10-14 18:34:00 Test Item Value Reference Range Interpretation Comments Chloride Lvl (test code = Chloride Lvl) 104 98-110 [facility]2020-10-14 18:34:00 Test Item Value Reference Range Interpretation Comments CO2 (test code = CO2) 26 20-32 [place] 225180-10-14 18:34:00 Test Item Value Reference Range Interpretation Comments Calcium Lvl (test code = Calcium Lvl) 9.4 8.6-10.3 [place] 225180-10-14 18:34:00 Test Item Value Reference Range Interpretation Comments Total Protein (test code = Total 6.3 6.1-8.1 Protein) [facility]2020-10-14 18:34:00 Test Item Value Reference Range Interpretation Comments Albumin Lvl (test code = Albumin Lvl) 4.3 3.6-5.1 [facility]2020-10-14 18:34:00 Test Item Value Reference Range Interpretation Comments Globulin (test code = Globulin) 2.0 1.9-3.7 [facility]2020-10-14 18:34:00 Test Item Value Reference Range Interpretation Comments A/G Ratio (test code = A/G Ratio) 2.2 1.0-2.5 [facility]2020-10-14 18:34:00 Test Item Value Reference Range Interpretation Comments Bili Total (test code = Bili Total) 0.4 0.2-1.2 [facility]2020-10-14 18:34:00 Test Item Value Reference Range Interpretation Comments Alk Phos (test code = Alk Phos) 71 35-144 [facility]2020-10-14 18:34:00 Test Item Value Reference Range Interpretation Comments ASPARTATE TRANSAMINASE (test code = 15 10-35 ASPARTATE TRANSAMINASE) [facility]2020-10-14 18:34:00 Test Item Value Reference Range Interpretation Comments ALANINE AMINOTRANSFERASE (test code = 18 9-46 ALANINE AMINOTRANSFERASE) [facility] [id number] 17:21:00 Test Item Value Reference Range Interpretation Comments Hgb A1C (test code = Hgb A1C) 6.2 [facility] [employer] [id number] 16:00:00 Test Item Value Reference Range Interpretation Comments Glucose Lvl (test code = Glucose Lvl) 131 65-99 [facility] [facility]2020-07-09 16:00:00 Test Item Value Reference Range Interpretation Comments BUN (test code = BUN) 24 7-25 [facility]2020-07-09 16:00:00 Test Item Value Reference Range Interpretation Comments Creatinine Lvl (test code = Creatinine 0.95 0.70-1.18 Lvl) [facility] [id number] 16:00:00 Test Item Value Reference Range Interpretation Comments eGFR NON-AFR. VINCENTIAN (test code = 79 eGFR NON-AFR. VINCENTIAN) [facility]2020-07-09 16:00:00 Test Item Value Reference Range Interpretation Comments eGFR (test code = eGFR 92 ) [facility]Health[facility]CAP[id number] 16:00:00 Test Item Value Reference Range Interpretation Comments B/C Ratio (test code = B/C NOT APPLICABLE 6-22 Ratio) [facility]2020-07-09 16:00:00 Test Item Value Reference Range Interpretation Comments Sodium Lvl (test code = Sodium Lvl) 138 135-146 [facility]2020-07-09 16:00:00 Test Item Value Reference Range Interpretation Comments Potassium Lvl (test code = Potassium 4.8 3.5-5.3 Lvl) [facility]2020-07-09 16:00:00 Test Item Value Reference Range Interpretation Comments Chloride Lvl (test code = Chloride Lvl) 101 98-110 [facility]2020-07-09 16:00:00 Test Item Value Reference Range Interpretation Comments CO2 (test code = CO2) 26 20-32 [facility]2020-07-09 16:00:00 Test Item Value Reference Range Interpretation Comments Calcium Lvl (test code = Calcium Lvl) 9.8 8.6-10.3 [facility]2020-07-09 16:00:00 Test Item Value Reference Range Interpretation Comments Total Protein (test code = Total 7.0 6.1-8.1 Protein) [facility]2020-07-09 16:00:00 Test Item Value Reference Range Interpretation Comments Albumin Lvl (test code = Albumin Lvl) 4.7 3.6-5.1 [facility]2020-07-09 16:00:00 Test Item Value Reference Range Interpretation Comments Globulin (test code = Globulin) 2.3 1.9-3.7 [facility]2020-07-09 16:00:00 Test Item Value Reference Range Interpretation Comments A/G Ratio (test code = A/G Ratio) 2.0 1.0-2.5 [facility]2020-07-09 16:00:00 Test Item Value Reference Range Interpretation Comments Bili Total (test code = Bili Total) 0.5 0.2-1.2 [facility]2020-07-09 16:00:00 Test Item Value Reference Range Interpretation Comments Alk Phos (test code = Alk Phos) 75 35-144 [place] 225180-07-09 16:00:00 Test Item Value Reference Range Interpretation Comments ASPARTATE TRANSAMINASE (test code = 15 10-35 ASPARTATE TRANSAMINASE) [facility]2020-07-09 16:00:00 Test Item Value Reference Range Interpretation Comments ALANINE AMINOTRANSFERASE (test code = 17 9-46 ALANINE AMINOTRANSFERASE) [facility]ERS[facility]4783[facility]-61 16:00:00 Test Item Value Reference Range Interpretation Comments WBC X 10x3 (test code = WBC X 10x3) 14.5 3.8-10.8 [facility] HospitalHmfsrgoNXAWSDMMDK3493-96-26 16:00:00 Test Item Value Reference Range Interpretation Comments RBC X 10x6 (test code = RBC X 10x6) 4.47 4.20-5.80 [facility] Hospit[id number] 16:00:00 Test Item Value Reference Range Interpretation Comments Hgb (test code = Hgb) 14.0 13.2-17.1 [facility] HospitalLnjzepiEAZGWJQBCD6435-48-64 16:00:00 Test Item Value Reference Range Interpretation Comments Hct (test code = Hct) 41.1 38.5-50.0 [facility] HospitalYqpuhohGFPZTISFES4655-03-43 16:00:00 Test Item Value Reference Range Interpretation Comments MCV (test code = MCV) 91.9 80.0-100.0 [facility] HospitalNwmkpqbRVUNTEMJAG3709-47-98 16:00:00 Test Item Value Reference Range Interpretation Comments MCH (test code = MCH) 31.3 pg 27.0-33.0 [facility] HospitalSyxlqkvTREIRKPKRP4020-96-27 16:00:00 Test Item Value Reference Range Interpretation Comments MCHC (test code = MCHC) 34.1 32.0-36.0 [facility] HospitalGzxemmiEDXDASQXRC4993-61-90 16:00:00 Test Item Value Reference Range Interpretation Comments RDW (test code = RDW) 13.8 11.0-15.0 [facility] HospitalXsiwltpJJJHGASYUN3005-83-19 16:00:00 Test Item Value Reference Range Interpretation Comments Platelet (test code = Platelet) 206 140-400 [facility] HospitalCuqokvyXASYMVOSOV7877-33-58 16:00:00 Test Item Value Reference Range Interpretation Comments MPV (test code = MPV) 11.5 7.5-12.5 [facility] HospitalZjffsocQIFPLKMBDC5932-16-81 16:00:00 Test Item Value Reference Range Interpretation Comments Neutrophils # (test code = Neutrophils 9237 3632-1094 #) [facility] HospitalPkbjirhVLXPPKTBCA9395-32-36 16:00:00 Test Item Value Reference Range Interpretation Comments Lymphocytes # (test code = Lymphocytes 3785 850-3900 #) [facility] HospitalSxsbraySVIEJLZVGV8685-12-44 16:00:00 Test Item Value Reference Range Interpretation Comments Monocytes # (test code = Monocytes #) 1088 200-950 [facility] HospitalUymesrbBOZKCVHCWD3718-90-30 16:00:00 Test Item Value Reference Range Interpretation Comments Eosinophils # (test code = Eosinophils 290 15-500 #) [facility] HospitalNiwjdygKCMPMNGMBX0659-38-05 16:00:00 Test Item Value Reference Range Interpretation Comments Basophils # (test code 102 See_Comment [Aut omated message] The = Basophils #) system which generated this result tra nsmitted reference range : <=200. The reference r leyla was not used to int erpret this result as normal/abnormal . [facility] HospitalXpsfmrwUEZXIIUWAS8741-39-63 16:00:00 Test Item Value Reference Range Interpretation Comments Segs (test code = Segs) 63.7 [facility] HospitalSifjwtcWCNEPJQKIU1574-35-65 16:00:00 Test Item Value Reference Range Interpretation Comments Lymphocytes (test code = Lymphocytes) 26.1 [facility] HospitalPlmfrymPCOVFYREET3063-96-94 16:00:00 Test Item Value Reference Range Interpretation Comments Monocytes (test code = Monocytes) 7.5 [facility] HospitalPgqayusJOXMJBECJD1071-29-00 16:00:00 Test Item Value Reference Range Interpretation Comments Eosinophils (test code = Eosinophils) 2.0 [facility] HospitalObtmpumSHELKWLGLB4438-09-07 16:00:00 Test Item Value Reference Range Interpretation Comments Basophils (test code = Basophils) 0.7 [facility]fmhxzqGOTIVW9188-72-29 16:00:00 Test Item Value Reference Range Interpretation Comments Chol (test code = Chol) 179 [facility]QzvluvdCOQJRG3911-22-49 16:00:00 Test Item Value Reference Range Interpretation Comments HDL (test code = HDL) 50 [facility]anoEsrzjogLXXDHM0209-51-10 16:00:00 Test Item Value Reference Range Interpretation Comments Trig (test code = Trig) 72 [facility]anoKfublklGJZLNY3713-73-48 16:00:00 Test Item Value Reference Range Interpretation Comments LDL (Calculated) (test code = LDL 113 (Calculated)) [facility]anoYanrxbsEANMZI5272-98-13 16:00:00 Test Item Value Reference Range Interpretation Comments CHD Risk (test code = CHD Risk) 3.6 [facility]PyyfqyvVYKHOQ4031-24-45 16:00:00 Test Item Value Reference Range Interpretation Comments Non HDL Chol (test code = Non HDL Chol) 129 [facility] [id number] 16:00:00 Test Item Value Reference Range Interpretation Comments Hgb A1C (test code = Hgb A1C) 6.5 [facility] [id number] 16:00:00 Test Item Value Reference Range Interpretation Comments U Creat mg/dL (test code = U Creat 49 20-320 mg/dL) [facility] [id number] 16:00:00 Test Item Value Reference Range Interpretation Comments U Alb (test code = U Alb) 1.2 [facility] [id number] 16:00:00 Test Item Value Reference Range Interpretation Comments U Alb/Crea (test code = U Alb/Crea) 24 [facility]
--- NOTE | 2021-10-27 22:35 | ER ---
Nurse's Notes [facility] Name: Lai Galvan Age: 76 yrs Sex: Male : 1945 Arrival Date: 10/27/2021 Time: 20:43 Bed 14 Private MD: Diagnosis: Encounter for change or removal of nonsurgical wound dressing Presentation: 10/27 20:56 Chief complaint: Patient states: "I had surgery today to remove a cyst and the dressing as6 came off". Coronavirus screen: At this time, the client does not indicate any symptoms associated with coronavirus-19. Ebola Screen: No symptoms or risks identified at this time. Initial Sepsis Screen: Does the patient meet any 2 criteria? No. Patient's initial sepsis screen is negative. Does the patient have a suspected source of infection? No. Patient's initial sepsis screen is negative. Risk Assessment: Do you want to hurt yourself or someone else? Patient reports no desire to harm self or others. Onset of symptoms was October 27, 2021. 20:56 Method Of Arrival: Ambulatory as6 20:56 Acuity: KIP 4 as6 Historical: - Allergies: 20:59 No Known Allergies; as6 - Home Meds: 20:59 metoprolol tartrate 25 mg Oral tab 1 tab once daily [Active]; atorvastatin 20 mg oral as6 tab 1 tab once daily [Active]; metformin 1,000 mg Oral tab 1 tab 2 times per day [Active]; glimepiride 1 mg Oral tab 2 tabs once daily [Active]; - PMHx: 20:59 Hypertensive disorder; Diabetes mellitus; as6 - PSHx: 20:59 cyst removal; Tonsillectomy; as6 - Immunization history:: Client reports receiving the 2nd dose of the Covid vaccine, pfizer. - Social history:: Smoking status: Patient reports the use of cigarette tobacco products, smokes one pack cigarettes per day. - Family history:: not pertinent. Screenin:39 Abuse screen: Denies threats or abuse. Nutritional screening: No deficits noted. jb4 Tuberculosis screening: No symptoms or risk factors identified. Fall Risk None identified. Assessment: 22:39 General: Appears in no apparent distress. comfortable, Behavior is calm, cooperative, jb4 appropriate for age. General: Dressing changed, wet to dry dressing applied.. Pain: Denies pain. Neuro: Level of Consciousness is awake, alert, obeys commands, Oriented to person, place, time, situation. Cardiovascular: Patient's skin is warm and dry. Respiratory: Airway is patent Respiratory effort is even, unlabored, Respiratory pattern is regular, symmetrical. Derm: Skin Surgical wound noted to base of the neck. Skin is pink, warm \\T\\ dry. Musculoskeletal: Circulation, motion, and sensation intact. Range of motion: intact in all extremities. Vital Signs: 20:56 BP 148 / 73; Pulse 89; Resp 18 S; Temp 98.5(O); Pulse Ox 96% on R/A; Weight 86.18 kg as6 (R); Height 5 ft. 9 in. (175.26 cm) (R); Pain /10; 20:56 Body Mass Index 28.06 (86.18 kg, 175.26 cm) as6 ED Course: 20:43 Patient arrived in ED. jj6 20:59 Triage completed. as6 21:02 Arm band placed on. as6 21:56 Charanjit Toribio MD is Attending Physician. [facility] 22:34 Ammon Quinones MD is Referral Physician. [facility] 22:39 Patient has correct armband on for positive identification. Bed in low position. Call jb4 light in reach. Side rails up X 1. 22:39 No provider procedures requiring assistance completed. Patient did not have IV access jb4 during this emergency room visit. Administered Medications: No medications were administered Medication: 22:39 VIS not applicable for this client. jb4 Outcome: 22:35 Discharge ordered by . [facility] 22:39 Discharged to home ambulatory. jb4 22:39 Condition: stable 22:39 Discharge instructions given to patient, Instructed on discharge instructions, follow up and referral plans. Demonstrated understanding of instructions, follow-up care. 22:41 Patient left the ED. jb4 Signatures: Charanjit Toribio MD MD cha Bryson, James, RN RN jb4 Malorie Whittaker jj6 Tone Chua, DAVID RN as6
--- NOTE | 2021-10-27 22:35 | EDPHYS ---
Physician Documentation [facility] Name: Lai Galvan Age: 76 yrs Sex: Male : 1945 Arrival Date: 10/27/2021 Time: 20:43 Bed 14 Private MD: ROSHAN Physician Charanjit Toribio HPI: 10/27 22:21 This 76 yrs old Male presents to ER via Ambulatory with complaints of Post herve Surgical Bleeding. 22:21 This 76 yrs old Male presents to ER via Ambulatory with complaints of Post herve Surgical Bleeding. 22:21 Patient presents to ED for recheck of: cellulitis. The affected area is on the thoracic herve area. Previous treatment: The patient was initially treated on October 27, 2021. Progress: The patient reports excellent improvement in the affected area. There has been resolution, improvement, or non-development of any drainage, fever, pain, redness or swelling. the patient presents with a swollen area of the . Description: The affected area is moderate sized, confluent. Onset: The symptoms/episode began/occurred today. Possible cause(s): unknown. Associated signs and symptoms: The patient has no apparent associated signs or symptoms. Historical: - Allergies: 20:59 No Known Allergies; as6 - Home Meds: 20:59 metoprolol tartrate 25 mg Oral tab 1 tab once daily [Active]; atorvastatin 20 mg oral as6 tab 1 tab once daily [Active]; metformin 1,000 mg Oral tab 1 tab 2 times per day [Active]; glimepiride 1 mg Oral tab 2 tabs once daily [Active]; - PMHx: 20:59 Hypertensive disorder; Diabetes mellitus; as6 - PSHx: 20:59 cyst removal; Tonsillectomy; as6 - Immunization history:: Client reports receiving the 2nd dose of the Covid vaccine, pfizer. - Social history:: Smoking status: Patient reports the use of cigarette tobacco products, smokes one pack cigarettes per day. - Family history:: not pertinent. ROS: 22:21 Constitutional: Negative for fever, chills, and weight loss, Eyes: Negative for injury, herve pain, redness, and discharge, ENT: Negative for injury, pain, and discharge, Neck: Negative for injury, pain, and swelling, Cardiovascular: Negative for chest pain, palpitations, and edema, Respiratory: Negative for shortness of breath, cough, wheezing, and pleuritic chest pain, Abdomen/GI: Negative for abdominal pain, nausea, vomiting, diarrhea, and constipation, Back: Negative for injury and pain, : Negative for injury, bleeding, discharge, and swelling, MS/Extremity: Negative for injury and deformity, Skin: Negative for injury, rash, and discoloration, Neuro: Negative for headache, weakness, numbness, tingling, and seizure, Psych: Negative for depression, anxiety, suicide ideation, homicidal ideation, and hallucinations, Allergy/Immunology: Negative for hives, rash, and allergies, Endocrine: Negative for neck swelling, polydipsia, polyuria, polyphagia, and marked weight changes, Hematologic/Lymphatic: Negative for swollen nodes, abnormal bleeding, and unusual bruising. 22:21 Skin: Negative for abscesses, cellulitis, erythema. Exam: 22:21 Constitutional: This is a well developed, well nourished patient who is awake, alert, herve and in no acute distress. Head/Face: Normocephalic, atraumatic. Eyes: Pupils equal round and reactive to light, extra-ocular motions intact. Lids and lashes normal. Conjunctiva and sclera are non-icteric and not injected. Cornea within normal limits. Periorbital areas with no swelling, redness, or edema. ENT: Nares patent. No nasal discharge, no septal abnormalities noted. Tympanic membranes are normal and external auditory canals are clear. Oropharynx with no redness, swelling, or masses, exudates, or evidence of obstruction, uvula midline. Mucous membranes moist. Neck: Trachea midline, no thyromegaly or masses palpated, and no cervical lymphadenopathy. Supple, full range of motion without nuchal rigidity, or vertebral point tenderness. No Meningismus. Chest/axilla: Normal chest wall appearance and motion. Nontender with no deformity. No lesions are appreciated. Cardiovascular: Regular rate and rhythm with a normal S1 and S2. No gallops, murmurs, or rubs. Normal PMI, no JVD. No pulse deficits. Respiratory: Lungs have equal breath sounds bilaterally, clear to auscultation and percussion. No rales, rhonchi or wheezes noted. No increased work of breathing, no retractions or nasal flaring. Abdomen/GI: Soft, non-tender, with normal bowel sounds. No distension or tympany. No guarding or rebound. No evidence of tenderness throughout. Back: No spinal tenderness. No costovertebral tenderness. Full range of motion. Male : Normal genitalia with no discharge or lesions. MS/ Extremity: Pulses equal, no cyanosis. Neurovascular intact. Full, normal range of motion. Neuro: Awake and alert, GCS 15, oriented to person, place, time, and situation. Cranial nerves II-XII grossly intact. Motor strength 5/5 in all extremities. Sensory grossly intact. Cerebellar exam normal. Normal gait. Psych: Awake, alert, with orientation to person, place and time. Behavior, mood, and affect are within normal limits. 22:21 Skin: abscess, not appreciated, cellulitis, is not appreciated, induration, is not appreciated, injury, is not appreciated, lesion(s), are not present, no rash present. Turgor: is excellent, Wound recheck: OPEN WOUND LOOKING GOOD. Vital Signs: 20:56 BP 148 / 73; Pulse 89; Resp 18 S; Temp 98.5(O); Pulse Ox 96% on R/A; Weight 86.18 kg as6 (R); Height 5 ft. 9 in. (175.26 cm) (R); Pain 1/10; 20:56 Body Mass Index 28.06 (86.18 kg, 175.26 cm) as6 MDM: 21:56 Patient medically screened. herve 22:29 Differential diagnosis: cellulitis, abscess. Data reviewed: vital signs, nurses notes. herve Data interpreted: compliance monitor: rate is 89 beats/min. Counseling: I had a detailed discussion with the patient and/or guardian regarding: the historical points, exam findings, and any diagnostic results supporting the discharge/admit diagnosis. Administered Medications: No medications were administered Disposition Summary: 10/27/21 22:35 Discharge Ordered Location: Home herve Problem: new herve Symptoms: have improved herve Condition: Stable herve Diagnosis - Encounter for change or removal of nonsurgical wound dressing herve Followup: herve - With: Ammon Quinones MD - When: 2 - 3 days - Reason: Recheck today's complaints, Continuance of care, Re-evaluation by your physician Discharge Instructions: - Discharge Summary Sheet herve - How to Change Your Wound Dressing herve - Laceration Care, Adult herve - Incision Care, Adult herve Forms: - Medication Reconciliation Form herve - Thank You Letter herve - Antibiotic Education herve - Prescription Opioid Use herve Signatures: Charanjit Toribio MD MD cha Slawson, Ashby RN RN as6
== END 2021-10-27 22:41 | disposition home or self-care (01) ==
LOC: ER 20:41
DX: Z48.00 Encounter for change or removal of nonsurgical wound dressing (principal); E11.9 Type 2 diabetes mellitus without complications; F17.210 Nicotine dependence, cigarettes, uncomplicated; I10 Essential (primary) hypertension
CPT/HCPCS: 99281

== ENCOUNTER 2023-08-21 11:12 | Emergency (ER) | payer OTHER ==
--- NOTE | 2023-08-21 11:41 | EDPHYS ---
Physician Documentation [facility] Name: Lai Galvan Age: 78 yrs Sex: Male : 1945 Arrival Date: 08/21/2023 Time: 11:12 Bed IW1 Private MD: ED Physician Solo Dupont HPI: 08/20 11:37 This 78 yrs old Male presents to ER via Ambulatory with complaints of Sore Throat. rn 11:37 The patient presents with sore throat. The patient describes throat pain as raw. Onset: rn The symptoms/episode began/occurred 2 day(s) ago. Severity of symptoms: At their worst the symptoms were moderate, in the emergency department the symptoms are unchanged. Modifying factors: The symptoms are alleviated by nothing, the symptoms are aggravated by swallowing. The patient has not experienced similar symptoms in the past. The patient has not recently seen a physician. Patient reports sore throat with pain that radiates to the left ear. No trauma. Reports low-grade fever. Unable to make a visit so came here for evaluation. No shortness of breath or swelling noted.. Historical: - Allergies: 11:31 No Known Allergies; iw - PMHx: 11:30 diabetes mellitus; Hypertensive disorder; iw - PSHx: 11:30 Cyst removal; Tonsillectomy; iw 11:31 cardiac stents; iw - Immunization history:: Adult Immunizations up to date. - Infectious Disease History:: Denies. - Social history:: Smoking status: Patient reports the use of cigarette tobacco products, smokes one pack cigarettes per day. - Family history:: not pertinent. - Hospitalizations: : No recent hospitalization is reported. ROS: 11:37 Constitutional: Negative for fever, chills, and weight loss, ENT: Positive for sore rn throat Cardiovascular: Negative for chest pain, palpitations, and edema, Respiratory: Negative for shortness of breath, cough, wheezing, and pleuritic chest pain, Exam: 11:37 Constitutional: This is a well developed, well nourished patient who is awake, alert, rn and in no acute distress. Head/Face: Normocephalic, atraumatic. ENT: Pharyngeal erythema without evidence of peritonsillar abscess, uvula midline without displacement. Moist mucous membranes. Nontender cervical lymphadenopathy bilaterally. No meningismus. Respiratory: No increased work of breathing, no retractions or nasal flaring. Vital Signs: 11:31 BP 150 / 74; Pulse 97; Resp 19; Temp 99; Pulse Ox 96% ; Weight 83.01 kg; Height 5 ft. 8 iw in. ; Pain 9/10; 11:31 Body Mass Index 27.82 (83.01 kg, 172.72 cm) iw 11:31 Pain Scale: Adult iw MDM: 11:17 Patient medically screened. rn 11:37 Differential diagnosis: laryngitis, pharyngitis, tonsillitis, upper respiratory rn infection, viral syndrome. Data reviewed: vital signs, nurses notes, and as a result, I will discharge patient. Counseling: I had a detailed discussion with the patient and/or guardian regarding the historical points, exam findings, and any diagnostic results supporting the discharge/admit diagnosis, the need for outpatient follow up, to return to the emergency department if symptoms worsen or persist or if there are any questions or concerns that arise at home. Special discussion: I discussed with the patient/guardian in detail that at this point there is no indication for admission to the hospital. It is understood, however, that if the symptoms persist or worsen the patient needs to return immediately for re-evaluation. Administered Medications: No medications were administered Disposition Summary: 08/21/23 11:40 Discharge Ordered Notes: Location: Home rn Problem: new rn Symptoms: have improved rn Condition: Stable rn Diagnosis - Acute pharyngitis, unspecified rn Followup: rn - With: Private Physician - When: As needed - Reason: Recheck today's complaints, Re-evaluation by your physician Discharge Instructions: - Discharge Summary Sheet rn - Pharyngitis rn Forms: - Medication Reconciliation Form rn - Antibiotic glove turner - Prescription Opioid Use rn - Patient Portal Instructions rn - Leadership Thank You Letter rn Prescriptions: - Augmentin 875-125 mg Oral Tablet - take 1 tablet ORAL route every 12 hours for 10 days; 20 tablet; Refills: 0, rn Product Selection Permitted Signatures: Imani Adams RN RN iw Solo Dupont MD MD rn
--- NOTE | 2023-08-21 11:41 | ER ---
Nurse's Notes [facility] Name: Lai Galvan Age: 78 yrs Sex: Male : 1945 Arrival Date: 08/21/2023 Time: 11:12 Bed IW1 Private MD: Diagnosis: Acute pharyngitis, unspecified Presentation: 08/20 11:29 Chief complaint: Patient states: pain to both ears and in his throat X 4 days, worse 2 iw days ago. Coronavirus screen: Client presents with at least one sign or symptom that may indicate coronavirus-19. Ebola Screen: Patient negative for fever greater than or equal to 101.5 degrees Fahrenheit, and additional compatible Ebola Virus Disease symptoms Patient denies exposure to infectious person. Patient denies travel to an Ebola-affected area in the 21 days before illness onset. No symptoms or risks identified at this time. Initial Sepsis Screen: Does the patient meet any 2 criteria? No. Patient's initial sepsis screen is negative. Does the patient have a suspected source of infection? No. Patient's initial sepsis screen is negative. Risk Assessment: Do you want to hurt yourself or someone else? Patient reports no desire to harm self or others. Onset of symptoms was August 17, 2023. 11:29 Method Of Arrival: Ambulatory iw 11:29 Acuity: KIP 4 iw Historical: - Allergies: 11:31 No Known Allergies; iw - PMHx: 11:30 diabetes mellitus; Hypertensive disorder; iw - PSHx: 11:30 Cyst removal; Tonsillectomy; iw 11:31 cardiac stents; iw - Immunization history:: Adult Immunizations up to date. - Infectious Disease History:: Denies. - Social history:: Smoking status: Patient reports the use of cigarette tobacco products, smokes one pack cigarettes per day. - Family history:: not pertinent. - Hospitalizations: : No recent hospitalization is reported. Vital Signs: 11:31 BP 150 / 74; Pulse 97; Resp 19; Temp 99; Pulse Ox 96% ; Weight 83.01 kg; Height 5 ft. 8 iw in. ; Pain 9/10; 11:31 Body Mass Index 27.82 (83.01 kg, 172.72 cm) iw 11:31 Pain Scale: Adult iw ED Course: 11:13 Patient arrived in ED. am2 11:17 Solo Dupont MD is Attending Physician. rn 11:30 Triage completed. iw 11:31 Arm band placed on. iw 11:43 Imani Adams RN is Primary Nurse. iw Administered Medications: No medications were administered Outcome: 11:40 Discharge ordered by . rn 12:01 Patient left the ED. iw Signatures: Imani Adams RN RN Solo Dupont MD MD rn Moreno, Amanda am2
[2023-08-21] MEDS ORDERED: AMOX/K CLAV 875 MG TAB ONE (11:56)
[2023-08-21 12:23] VITALS: BP 150/74; TEMP 99; O2SAT 96
== END 2023-08-21 12:01 | disposition home or self-care (01) ==
LOC: ER 11:12
DX: J02.9 Acute pharyngitis, unspecified (principal); F17.210 Nicotine dependence, cigarettes, uncomplicated; Z95.818 Presence of other cardiac implants and grafts
CPT/HCPCS: 99281